=== PATIENT | female | born 1980 | race Hispanic/Latino ===

== ENCOUNTER 2019-04-23 14:15 | Emergency (ER) | payer MEDICARE ==
[2019-04-23 16:00] LABS: Basophils # (Auto) 0.1 K/mm3 (0.0-0.1); Basophils % (Auto) 1.1 % (0.0-1.8); Eosinophils # (Auto) 0.4 K/mm3 (0.0-0.4); Eosinophils % (Auto) 4.8 % (0.0-4.3); Hematocrit 36.2 % (30.3-42.9); Hemoglobin 12.5 gm/dl (10.1-14.3); Lymphocytes # (Auto) 2.4 K/mm3 (1.2-5.4); Lymphocytes % (Auto) 31.9 % (13.4-35.0); Mean Corpuscular HGB Conc 35 % (30-34); Mean Corpuscular Volume 85 fl (79-97); Monocytes # (Auto) 0.5 K/mm3 (0.0-0.8); Monocytes % (Auto) 6.2 % (0.0-7.3); Platelet Count 269 K/mm3 (140-440); Red Blood Count 4.27 M/mm3 (3.65-5.03); Red Cell Distribution Width 13.3 % (13.2-15.2)
[2019-04-23 16:10] LABS: Bilirubin,Urine NEG (Negative); Blood,Urine SM (Negative); Color,Urine Straw (Yellow); Protein,Urine <15 mg/dL mg/dL (Negative); Urobilinogen,Urine < 2.0 mg/dL (<2.0); WBC,Urine < 1.0 /HPF (0.0-6.0)
[2019-04-23 16:25] LABS: Alanine Aminotransferase 15 units/L (7-56); Albumin 4.3 g/dL (3.9-5); BUN/Creatinine Ratio 8; Blood Urea Nitrogen 7 mg/dL (7-17); Calcium 9.2 mg/dL (8.4-10.2); Hemolysis Index 5
[2019-04-23] MEDS ORDERED: TYLENOL PO ONE (16:42)
--- NOTE | 2019-04-23 17:23 | Emergency Department Report ---
HPI - General Chief Complaint: Abdominal Pain Time Seen by Provider: 04/23/19 15:15 - HPI HPI: 38-year-old female presents to the emergency department from [facility] with the complaint of urinary retention. The patient has a history of this over the past year, intermittently. She says that this is been going on since she had sided nephrectomy secondary to cancer in August 2017. She is currently at [facility] for both psychiatric and substance abuse but is currently a voluntary admission there. The patient was having difficulty urinating today so they did a straight cath at about 12:15 and got out about 500 mL of urine. She complains of some lower abdominal pain due to the "pressure" but that has improved upon a Granados catheter being placed here. Just complains of some pain to the right upper quadrant where she has a "knot" that pops out when she stands up. She has a primary care physician and urologist in [facility]. ED Past Medical Hx - Past Medical History Previous Medical History?: Yes - Social History Smoking Status: Current Every Day Smoker Substance Use Type: None - Medications Home Medications: Home Medications Medication Instructions Recorded Confirmed Last Taken Type cephALEXin [Keflex] 1,000 mg PO BID #28 capsule 04/23/19 Unknown Rx ED Review of Systems ROS: Stated complaint: URINARY BLOCKAGE Other details as noted in HPI Comment: All other systems reviewed and negative Constitutional: denies: chills, fever Eyes: denies: eye pain, vision change ENT: denies: ear pain, throat pain Respiratory: denies: cough, shortness of breath Cardiovascular: denies: chest pain, palpitations Gastrointestinal: abdominal pain. denies: vomiting Genitourinary: other (urinary retention). denies: discharge Musculoskeletal: denies: back pain, arthralgia Skin: denies: rash, lesions Neurological: denies: headache, weakness Physical Exam - Physical Exam Vital Signs: Vital Signs 04/23/19 04/23/19 14:48 14:54 Temperature 99 F Pulse Rate 80 Respiratory 12 12 Rate Blood Pressure 124/45 O2 Sat by Pulse 100 Oximetry Physical Exam: GENERAL: The patient is well-developed well-nourished. HENT: Normocephalic. Atraumatic. Patient has moist mucous membranes. EYES: Extraocular motions are intact. NECK: Supple. Trachea is midline. CHEST/LUNGS: Clear to auscultation. There is no respiratory distress noted. HEART/CARDIOVASCULAR: Regular. There is no tachycardia. There is no murmur. ABDOMEN: Abdomen is soft. Mild right upper quadrant abdominal tenderness to palpation. No guarding. Patient has normal bowel sounds. There is no abdominal distention. SKIN: Skin is warm and dry. NEURO: The patient is awake, alert, and oriented. The patient is cooperative. The patient has no focal neurologic deficits. Normal speech. MUSCULOSKELETAL: There is no tenderness or deformity. There is no evidence of acute injury. ED Course Vital Signs 04/23/19 04/23/19 14:48 14:54 Temperature 99 F Pulse Rate 80 Respiratory 12 12 Rate Blood Pressure 124/45 O2 Sat by Pulse 100 Oximetry ED Medical Decision Making - Lab Data Result diagrams: 04/23/19 15:50 04/23/19 15:50 - Radiology Data Radiology results: report reviewed Abdominal ultrasound does not show any acute process - Medical Decision Making This patient presents with some urinary retention. She got out about 500 mL of urine at the psychiatric facility by straight cath. We got out another 700 here doing the same. At this point a Granados catheter was placed. When the patient was decompressed she began having less pain to the suprapubic abdomen but has some mild right upper quadrant tenderness/pain. Abdominal ultrasound does not show any acute process. Labs are unremarkable including urinalysis. Normal k idney function. The patient does have some history of urinary retention since having renal cancer and a nephrectomy and has a urologist back home in [facility]. Vital signs stable throughout her ED course. The patient appears safe for discharge back to the facility at this time. The Granados catheter remains in place and has been put on to a leg bag. She was given a 1 week course of antibiotics for the Granados placement. She will return to the ER with any worsening of her symptoms or any acute distress. - Differential Diagnosis bladder obstruction, UTI, malignancy Critical Care Time: No Critical care attestation.: If time is entered above; I have spent that time in minutes in the direct care of this critically ill patient, excluding procedure time. ED Disposition Clinical Impression: Urinary retention Abdominal pain Qualifiers: Abdominal location: unspecified location Qualified Code(s): R10.9 - Unspecified abdominal pain Disposition: DC/TX-65 PSY HOSP/PSY UNIT Is pt being admited?: No Condition: Stable Instructions: Granados Catheter Placement and Care (ED), Acute Urinary Retention i n Women (ED), Abdominal Pain (ED), Urinary Leg Bag (GEN) Additional Instructions: Please follow-up with your primary care physician and urologist as soon as you're able to do so. Return to the emergency Department with any worsening of your symptoms or any acute distress. Prescriptions: cephALEXin [Keflex] 1,000 mg PO BID #28 capsule Referrals: SHAKIR JESUS [Other] - JAMES Urologist, Your [Other] - JAMES Time of Disposition: 18:58
--- NOTE | 2019-04-23 18:44 | Ultrasound Report ---
ULTRASOUND ABDOMEN, COMPLETE INDICATION: RUQ abd pain, urinary retention, Lower abd pain. COMPARISON: None available. FINDINGS: Pancreas: Normal. Abdominal Aorta: Normal. IVC: Normal. Liver: Normal. Gallbladder: Previous cholecystectomy Bile ducts: Normal. Common Bile Duct measures 3.7 mm. Right Kidney: Normal. Left Kidney: Previous left nephrectomy Spleen: Normal. Free fluid: None. Additional Findings: None. IMPRESSION: 1. No sonographic abnormality of the abdomen. Signer Name: Dontrell Barnett MD Signed: 04/23/2019 6:40 PM Workstation Name: [id number]
[2019-04-23] MEDS ORDERED: ULTRAM PO ONE (18:54)
[2019-04-23] MEDS ORDERED: KEFLEX PO ONE (18:56)
[2019-04-23 23:15] VITALS: BP 121/61
== END 2019-04-24 00:45 ==
LOC: ED 14:15
DX: R33.9 Retention of urine, unspecified (principal); R10.30 Lower abdominal pain, unspecified; F17.200 Nicotine dependence, unspecified, uncomplicated
CPT/HCPCS: 36415; 51702; 76700; 80053; 81001; 84703; 85025

== ENCOUNTER 2019-04-25 14:00 | Emergency (ER) | payer MEDICARE ==
[2019-04-25 14:48] VITALS: BP 120/79
--- NOTE | 2019-04-25 15:04 | Emergency Department Report ---
ED General Adult HPI - General Chief complaint: Urogenital-Female Stated complaint: LOWER ABD PAIN/BLOCKED CATHETER Time Seen by Provider: 04/25/19 14:52 Source: patient, EMS Mode of arrival: Ambulatory Limitations: No Limitations - History of Present Illness Initial comments: This is a 38-year-old inpatient psychiatric patient who states that her Granados catheter drains off and on. She was sent here for evaluation on that basis. She states that she was here a few days ago and a catheter was placed. According to the previous record: 38-year-old female presents to the emergency department from [facility] with the complaint of urinary retention. The patient has a history of this over the past year, intermittently. She says that this is been going on since she had sided nephrectomy secondary to cancer in August 2017. She is currently at [facility] for both psychiatric and substance abuse but is currently a voluntary admission there. The patient was having difficulty urinating today so they did a straight cath at about 12:15 and got out about 500 mL of urine. She complains of some lower abdominal pain due to the "pressure" but that has improved upon a Granados catheter being placed here. Just complains of some pain to the right upper quadrant where she has a "knot" that pops out when she stands up. She has a primary care physician and urologist in [facility]. On my encounter the catheter appears to be draining a clear yellow urine. Patient states that it was not draining earlier and then it started draining again. It appears she is stating that it intermittently stops draining. 2 days ago the patient had an unremarkable abdominal sonogram. -: Sudden Quality: other (states he has some discomfort when her catheter doesn't drain. No current pain complaint.) - Related Data Previous Rx's Medication Instructions Recorded Last Taken Type cephALEXin [Keflex] 1,000 mg PO BID #28 capsule 04/23/19 Unknown Rx Nitrofurantoin Macrocrysta(Nf) 100 mg PO BID #14 capsule 04/25/19 Unknown Rx [Macrodantin CAP] Allergies Allergy/AdvReac Type Severity Reaction Status Date / Time aspirin Allergy Unknown Verified 04/23/19 14:58 divalproex sodium Allergy Unknown Verified 04/23/19 14:58 [From Depakote] hydromorphone [From Dilaudid] Allergy Unknown Verified 04/23/19 14:58 lithium Allergy Unknown Verified 04/23/19 14:58 Sulfa (Sulfonamide Allergy Unknown Verified 04/23/19 14:58 Antibiotics) ED Review of Systems ROS: Stated complaint: LOWER ABD PAIN/BLOCKED CATHETER Other details as noted in HPI Constitutional: denies: chills, fever Eyes: denies: eye pain, eye discharge, vision change ENT: denies: ear pain, throat pain Respiratory: denies: cough, shortness of breath, wheezing Cardiovascular: denies: chest pain, palpitations Endocrine: no symptoms reported Gastrointestinal: denies: abdominal pain, nausea, diarrhea Genitourinary: as per HPI Musculoskeletal: denies: back pain, joint swelling, arthralgia Skin: denies: rash, lesions Neurological: denies: headache, weakness, paresthesias Psychiatric: denies: anxiety, depression Hematological/Lymphatic: denies: easy bleeding, easy bruising ED Past Medical Hx - Past Medical History Previous Medical History?: Yes Hx Diabetes: Yes Hx Psychiatric Treatment: Yes (bipolar) Additional medical history: kidney cancer - Social History Smoking Status: Current Every Day Smoker Substance Use Type: None - Medications Home Medications: Home Medications Medication Instructions Recorded Confirmed Last Taken Type cephALEXin [Keflex] 1,000 mg PO BID #28 capsule 04/23/19 Unknown Rx Nitrofurantoin Macrocrysta(Nf) 100 mg PO BID #14 capsule 04/25/19 Unknown Rx [Macrodantin CAP] ED Physical Exam - General Limitations: No Limitations General appearance: alert, in no apparent distress - Head Head exam: Present: atraumatic, normocephalic - Eye Eye exam: Present: normal appearance. Absent: scleral icterus - ENT ENT exam: Present: mucous membranes moist - Neck Neck exam: Present: normal inspection. Absent: tenderness, meningismus - Respiratory Respiratory exam: Present: normal lung sounds bilaterally. Absent: respiratory distress - Cardiovascular Cardiovascular Exam: Present: regular rate, normal rhythm. Absent: systolic murmur, diastolic murmur, rubs, gallop - GI/Abdominal GI/Abdominal exam: Present: soft, normal bowel sounds. Absent: distended, tenderness, guarding, rebound, rigid - Extremities Exam Extremities exam: Present: normal inspection - Back Exam Back exam: Present: normal inspection - Neurological Exam Neurological exam: Present: alert, oriented X3, CN II-XII intact. Absent: motor sensory deficit - Psychiatric Psychiatric exam: Present: normal mood, flat affect - Skin Skin exam: Present: warm, dry, intact, normal color. Absent: rash ED Course Vital Signs 04/25/19 14:42 Temperature 98 F Pulse Rate 80 Respiratory 16 Rate Blood Pressure 120/79 O2 Sat by Pulse 98 Oximetry - Reevaluation(s) Reevaluation #1: She was questionable UTI. We'll culture her urine. We'll put her on Macrodantin. Refer to [facility]. 04/25/19 17:01 ED Medical Decision Making - Lab Data Result diagrams: 04/25/19 14:58 04/25/19 14:58 Laboratory Results - last 24 hr 04/25/19 04/25/19 04/25/19 14:58 14:58 Unknown WBC 8.1 RBC 4.44 Hgb 12.7 Hct 37.9 MCV 86 MCH 29 MCHC 33 RDW 13.9 Plt Count 280 Lymph % (Auto) 29.9 [place] % (Auto) 6.6 Eos % (Auto) 3.8 Baso % (Auto) 1.2 Lymph # 2.4 [place]ven # 0.5 Eos # 0.3 Baso # 0.1 Seg Neutrophils % 58.5 Seg Neutrophils # 4.7 Sodium 139 Potassium 3.7 Chloride 105.0 Carbon Dioxide 21 L Anion Gap 17 BUN 7 Creatinine 0.8 Estimated GFR > 60 BUN/Creatinine Ratio 9 Glucose 96 Calcium 8.8 Urine Color Karen Urine Turbidity Clear Urine pH 6.0 Ur Specific [place] 1.008 Urine Protein <15 mg/dl Urine Glucose (UA) Neg Urine Ketones Neg Urine Blood Sm Urine Nitrite Pos Urine Bilirubin Neg Urine Urobilinogen 2.0 Ur Leukocyte Esterase Sm Urine WBC (Auto) 4.0 Urine RBC (Auto) 4.0 Urine Bacteria (Auto) 1+ Urine Mucus Few Critical care attestation.: If time is entered above; I have spent that time in minutes in the direct care of this critically ill patient, excluding procedure time. ED Disposition Clinical Impression: Urinary retention UTI (urinary tract infection) Qualifiers: Urinary tract infection type: site unspecified Hematuria presence: without h ematuria Qualified Code(s): N39.0 - Urinary tract infection, site not specified Disposition: - TO HOME OR SELFCARE Is pt being admited?: No Does the pt Need Aspirin: No Condition: Stable Instructions: Urinary Tract Infection in Women (ED), Granados Catheter Placement and Care (ED) Additional Instructions: Rx as directed. Follow-up with urologist. Empty bag adequately frequently. Follow-up on urine culture in 3 days. Prescriptions: Nitrofurantoin Macrocrysta(Nf) [Macrodantin CAP] 100 mg PO BID #14 capsule Referrals: PRIMARY CAREMD [Primary Care Provider] - 3-5 Days [facility] [Provider Group] - 3-5 Days Time of Disposition: 17:02
[2019-04-25 15:24] LABS: Basophils # (Auto) 0.1 K/mm3 (0.0-0.1); Basophils % (Auto) 1.2 % (0.0-1.8); Eosinophils # (Auto) 0.3 K/mm3 (0.0-0.4); Eosinophils % (Auto) 3.8 % (0.0-4.3); Hematocrit 37.9 % (30.3-42.9); Hemoglobin 12.7 gm/dl (10.1-14.3); Lymphocytes # (Auto) 2.4 K/mm3 (1.2-5.4); Lymphocytes % (Auto) 29.9 % (13.4-35.0); Mean Corpuscular HGB Conc 33 % (30-34); Mean Corpuscular Volume 86 fl (79-97); Monocytes # (Auto) 0.5 K/mm3 (0.0-0.8); Monocytes % (Auto) 6.6 % (0.0-7.3); Platelet Count 280 K/mm3 (140-440); Red Blood Count 4.44 M/mm3 (3.65-5.03); Red Cell Distribution Width 13.9 % (13.2-15.2)
[2019-04-25 15:28] LABS: BUN/Creatinine Ratio 9; Blood Urea Nitrogen 7 mg/dL (7-17); Calcium 8.8 mg/dL (8.4-10.2); Hemolysis Index 11
[2019-04-25] MEDS ORDERED: TYLENOL PO ONE (15:38)
[2019-04-25 15:45] LABS: Bacteria,Urine 1+ /HPF (Negative); Bilirubin,Urine NEG (Negative); Blood,Urine SM (Negative); Color,Urine Amber (Yellow); Mucus,Urine FEW /HPF; Protein,Urine <15 mg/dL mg/dL (Negative)
== END 2019-04-25 18:04 | disposition home or self-care (01) ==
LOC: ED 14:00
DX: N39.0 Urinary tract infection, site not specified (principal); R33.9 Retention of urine, unspecified; E11.9 Type 2 diabetes mellitus without complications; F20.9 Schizophrenia, unspecified; Z85.528 Personal history of other malignant neoplasm of kidney; Z88.2 Allergy status to sulfonamides; Z88.8 Allergy status to other drugs, medicaments and biological substances; Z79.899 Other long term (current) drug therapy
CPT/HCPCS: 36415; 80048; 81001; 85025; 87076; 87086; 87186

== ENCOUNTER 2019-07-12 22:42 | Emergency (ER) | payer OTHER, MEDICARE ==
[2019-07-12 23:01] VITALS: BP 121/74
--- NOTE | 2019-07-12 23:11 | XRay Report ---
Right hand 3 views INDICATION: Right hand pain following injury IMPRESSION: Impacted fracture through the distal metaphysis of the fifth metacarpal. Signer Name: Darren Barber MD Signed: 07/12/2019 11:07 PM Workstation Name: [id number]
--- NOTE | 2019-07-12 23:38 | Emergency Department Report ---
Upper Extremity - [facility] Chief Complaint: Extremity Injury, Upper Stated Complaint: FRACTURED RIGHT HAND Time Seen by Provider: 07/12/19 22:47 Upper Extremity: Right Hand Occurred When: 4 Days Mechanism: Other (punched a metal door on July 08) Symptoms: Yes Pain with Movement, Yes Swelling Other History: 38-year-old female patient of words grew frustrated and punched a door on July 08 associated swelling to the lateral aspect of the right hand. She reports having had some x-rays taken on yesterday which revealed a fracture and was told to emergency department today for further evaluation and treatment options ED Review of Systems ROS: Stated complaint: FRACTURED RIGHT HAND Other details as noted in HPI Comment: All other systems reviewed and negative ED Past Medical Hx - Past Medical History Hx Diabetes: Yes Hx Psychiatric Treatment: Yes (bipolar) Additional medical history: kidney cancer - Social History Smoking Status: Current Every Day Smoker Substance Use Type: None - Medications Home Medications: Home Medications Medication Instructions Recorded Confirmed Last Taken Type cephALEXin [Keflex] 1,000 mg PO BID #28 capsule 04/23/19 Unknown Rx Nitrofurantoin Macrocrysta(Nf) 100 mg PO BID #14 capsule 04/25/19 Unknown Rx [Macrodantin CAP] Upper Extremity Exam - Exam General: Vital signs noted. No distress. Alert and acting appropriately. Head and Torso: No HEENT Abnormality, No Neck Tenderness, No Chest/Lungs Abnorma lity, No Abdominal Tenderness, No Back Tenderness Shoulder Exam: Yes Normal Range of Motion in Shoulder, No Shoulder Tenderness, No Clavicle Tenderness, No Shoulder Deformity, No AC Joint Tenderness Arm Exam: No Arm/Humerus Tenderness, No Arm Deformity Elbow: No Elbow Tenderness, No Normal Range of Motion in Elbow, No Elbow Deformity Forearm: No Forearm Tenderness, No Forearm Deformity, No Pain with Pronation, No Pain with Supination Wrist: Yes Normal ROM in Wrist, No Wrist Tenderness, No Wrist Deformity, No Snuffbox Tenderness, No Pain with Axial Thumb Compression Hand: Yes Hand Tenderness, Yes Normal ROM in Digit(s), No Hand Deformity, No D igit Tenderness, No Digit(s) Deformity, No Tendon Dysfunction CMS Exam: No Broken Skin, No Normal Distal Pulses, No Normal Capillary Refill, No Normal Distal Sensation Hand L/R Back: 1 - Pain and tenderness to this region with some mild swelling. Pulses 2+ ca pillary refills are brisk. No snuffbox tenderness ED Course Vital Signs 07/12/19 22:50 Temperature 97.8 F Pulse Rate 60 Respiratory 18 Rate Blood Pressure 121/74 O2 Sat by Pulse 99 Oximetry - Orthopedic Splinting/Casting Injury #1 Side: right Upper Extremity Injury Location: hand Upper Extremity Immobilizer: [facility] gutter Critical care attestation.: If time is entered above; I have spent that time in minutes in the direct care of this critically ill patient, excluding procedure time. ED Disposition Clinical Impression: Metacarpal bone fracture Disposition: - TO HOME OR SELFCARE Is pt being admited?: No Does the pt Need Aspirin: No Condition: Stable Instructions: Hand Fracture (ED), Boxer Fracture (ED) Referrals: MINGO AGUIRRE MD [Staff Physician] - 3-5 Days
== END 2019-07-13 01:55 | disposition home or self-care (01) ==
LOC: ED 22:42
DX: S62.316A Displaced fracture of base of fifth metacarpal bone, right hand, initial encounter for closed fracture (principal); E11.9 Type 2 diabetes mellitus without complications; F31.9 Bipolar disorder, unspecified; F17.200 Nicotine dependence, unspecified, uncomplicated; Z79.899 Other long term (current) drug therapy; Z88.6 Allergy status to analgesic agent; Z88.8 Allergy status to other drugs, medicaments and biological substances; W22.8XXA Striking against or struck by other objects, initial encounter; Y93.89 Activity, other specified; Y92.89 Other specified places as the place of occurrence of the external cause; Y99.8 Other external cause status

== ENCOUNTER 2019-09-18 20:01 | Emergency (ER) | payer MEDICARE ==
[2019-09-19 00:59] LABS: Basophils # (Auto) 0.1 K/mm3 (0.0-0.1); Basophils % (Auto) 0.9 % (0.0-1.8); Eosinophils # (Auto) 0.5 K/mm3 (0.0-0.4); Eosinophils % (Auto) 4.8 % (0.0-4.3); Hematocrit 41.2 % (30.3-42.9); Hemoglobin 13.8 gm/dl (10.1-14.3); Lymphocytes # (Auto) 3.3 K/mm3 (1.2-5.4); Lymphocytes % (Auto) 30.8 % (13.4-35.0); Mean Corpuscular HGB Conc 34 % (30-34); Mean Corpuscular Volume 84 fl (79-97); Monocytes # (Auto) 0.8 K/mm3 (0.0-0.8); Monocytes % (Auto) 7.2 % (0.0-7.3); Platelet Count 339 K/mm3 (140-440); Red Blood Count 4.93 M/mm3 (3.65-5.03)
[2019-09-19 01:12] LABS: BUN/Creatinine Ratio 10; Blood Urea Nitrogen 10 mg/dL (7-17); Calcium 9.5 mg/dL (8.4-10.2); Hemolysis Index 6
[2019-09-19] MEDS ORDERED: ACETAMINOPHEN 500 MG TAB PO ONE (01:59)
--- NOTE | 2019-09-19 03:06 | Emergency Department Report ---
<ESMERLAURAKellLOUIE - Last Filed: 09/19/19 03:01> ED Psych HPI - General Chief Complaint: Medical Clearance Stated Complaint: DRUG ABUSE/HEADACHE Source: patient, EMS Mode of arrival: Ambulatory Limitations: No Limitations - History of Present Illness Initial Comments: Patient is a 38-year-old white female with a history of chronic anxiety and depression, bipolar disorder, and chronic drug abuse who presents to the ED with complains of diffuse body aches after heavy cocaine abuse in the last 7 days. Patient states that she is in the ED for medical clearance so she could go follow detox of cocaine. Patient also states that she has not taken her mental health medications in over 1 month after she stopped taking them on her own. Patient denies suicidal or homicidal ideation, chest pain, shortness of breath, headache, nausea, vomiting, abdominal pain, change in vision, syncope, palpitations, diarrhea, fever and chills or cough and hallucinations. MD Complaint: feels depressed, other (cocaine abuse, wants detox) -: Sudden, week(s) (1) Associated Psychiatric Symptoms: depression History of same: Yes Quality: constant Improves With: none Worsens With: none Context: recent drug abuse, not taking psychiatric Associated Symptoms: headache. denies: denies other symptoms, confusion, shortness of breath, nausea, vomiting, syncope, insomnia Treatments Prior to Arrival: none - Related Data Previous Rx's Medication Instructions Recorded Last Taken Type cephALEXin [Keflex] 1,000 mg PO BID #28 capsule 04/23/19 Unknown Rx Nitrofurantoin Macrocrysta(Nf) 100 mg PO BID #14 capsule 04/25/19 Unknown Rx [Macrodantin CAP] Allergies Allergy/AdvReac Type Severity Reaction Status Date / Time aspirin Allergy Unknown Verified 04/23/19 14:58 divalproex sodium Allergy Unknown Verified 04/23/19 14:58 [From Depakote] hydromorphone [From Dilaudid] Allergy Unknown Verified 04/23/19 14:58 lithium Allergy Unknown Verified 04/23/19 14:58 Sulfa (Sulfonamide Allergy Unknown Verified 04/23/19 14:58 Antibiotics) ED Review of Systems Constitutional: denies: chills, fever Eyes: denies: eye pain, eye discharge, vision change ENT: denies: ear pain, throat pain Respiratory: denies: cough, shortness of breath, wheezing Cardiovascular: denies: chest pain, palpitations Endocrine: no symptoms reported Gastrointestinal: denies: abdominal pain, nausea, diarrhea Genitourinary: denies: urgency, dysuria, discharge Musculoskeletal: arthralgia, myalgia. denies: back pain, joint swelling Skin: denies: rash, lesions Neurological: headache. denies: weakness, paresthesias Psychiatric: anxiety, depression. denies: auditory hallucinations, visual hallucinations, homicidal thoughts, suicidal thoughts Hematological/Lymphatic: denies: easy bleeding, easy bruising ED Past Medical Hx - Past Medical History Previous Medical History?: Yes Hx Diabetes: Yes Hx Psychiatric Treatment: Yes (bipolar, schizoaffective disorder) Hx COPD: Yes Additional medical history: kidney cancer - Surgical History Past Surgical History?: Yes Additional Surgical History: kidney surgery - Social History Smoking Status: Current Every Day Smoker Substance Use Type: Cocaine - Medications Home Medications: Home Medications Medication Instructions Recorded Confirmed Last Taken Type cephALEXin [Keflex] 1,000 mg PO BID #28 capsule 04/23/19 Unknown Rx Nitrofurantoin Macrocrysta(Nf) 100 mg PO BID #14 capsule 04/25/19 Unknown Rx [Macrodantin CAP] ED Physical Exam - General Limitations: No Limitations General appearance: alert, in no apparent distress - Head Head exam: Present: atraumatic, normocephalic, normal inspection - Eye Eye exam: Present: normal appearance, PERRL, EOMI Pupils: Present: normal accommodation - ENT ENT exam: Present: normal exam, normal orophraynx, mucous membranes moist, TM's normal bilaterally, normal external ear exam - Neck Neck exam: Present: normal inspection, full ROM - Respiratory Respiratory exam: Present: normal lung sounds bilaterally. Absent: respiratory distress, wheezes, rales, rhonchi, stridor, chest wall tenderness, accessory muscle use, prolonged expiratory - Cardiovascular Cardiovascular Exam: Present: regular rate, normal rhythm, normal heart sounds. Absent: systolic murmur, diastolic murmur, rubs, gallop - GI/Abdominal GI/Abdominal exam: Present: soft, normal bowel sounds. Absent: tenderness, guarding, rebound, hyperactive bowel sounds, hypoactive bowel sounds, organomegaly - Extremities Exam Extremities exam: Present: normal inspection, full ROM, normal capillary refill - Back Exam Back exam: Present: normal inspection, full ROM. Absent: tenderness, CVA tenderness (R), CVA tenderness (L), muscle spasm, paraspinal tenderness - Neurological Exam Neurological exam: Present: alert, oriented X3, CN II-XII intact, normal gait, reflexes normal - Psychiatric Psychiatric exam: Present: normal affect, normal mood - Skin Skin exam: Present: warm, dry, intact, normal color. Absent: rash ED Medical Decision Making - Lab Data Result diagrams: 09/19/19 00:38 09/19/19 00:38 - Medical Decision Making This is a 38-year-old white female with a history of chronic drug abuse, bipolar disorder, anxiety and depression, schizophrenia and [id number] diabetes who presents to the ED via EMS requesting for medical clearance in order to go for detox and drug rehabilitation especially cocaine program. Patient has stated that she had been on a cocaine binge for the last 7 days and also failed to take her mental health medications for over one month. In the ED, patient is alert and oriented 3 and recent distress, cutting and normal conversation and is hemodynamically stable. Lab test results were reviewed and are all nonactionable except for acute hyperglycemia of 229mg/dL. Patient was treated for tension headache and body aches with Tylenol, and also given a meal tray. Patient is medically cleared, and currently awaiting mental health evaluation and subsequent disposition. - Differential Diagnosis Cocaine abuse; Bipolar d/o Schizophrenia, depression ED Disposition Clinical Impression: Polysubstance abuse Disposition: DC-01 TO HOME OR SELFCARE Is pt being admited?: No Does the pt Need Aspirin: No Condition: Stable Instructions: Polysubstance Abuse (ED) Additional Instructions: please follow up with outpatient services provided to you Referrals: PRIMARY CARE, [Primary Care Provider] - 3-5 Days [facility] [Outside] - 3-5 Days Time of Disposition: 03:13 Print Language: AMHARIC <AMANDA MCKEON - Last Filed: 09/20/19 12:16> ED Review of Systems ROS: Stated complaint: DRUG ABUSE/HEADACHE Other details as noted in HPI ED Course Vital Signs 09/18/19 09/19/19 09/19/19 20:06 03:11 05:00 Temperature 98.7 F 97.9 F Pulse Rate 76 82 Respiratory 16 18 18 Rate Blood Pressure 141/87 Blood Pressure 126/69 [Right] O2 Sat by Pulse 97 100 98 Oximetry 02/08/20 02/08/20 02/09/20 07:44 20:22 01:47 Temperature 98.1 F 98.1 F 98.0 F Pulse Rate 96 H 69 62 Respiratory 18 16 14 Rate Blood Pressure Blood Pressure 134/78 117/68 135/78 [Right] O2 Sat by Pulse 98 96 93 Oximetry 09/20/19 08:08 Temperature 98.2 F Pulse Rate 62 Respiratory 16 Rate Blood Pressure Blood Pressure 121/72 [Right] O2 Sat by Pulse 97 Oximetry ED Medical Decision Making - Lab Data Result diagrams: 09/19/19 00:38 09/19/19 00:38 - Medical Decision Making Patient evaluated by mental health and given outpatient resources follow-up Critical care attestation.: If time is entered above; I have spent that time in minutes in the direct care of this critically ill patient, excluding procedure time. ED Disposition Is pt being admited?: No Does the pt Need Aspirin: No
[2019-09-19 03:21] LABS: Bacteria,Urine 1+ /HPF (Negative); Bilirubin,Urine NEG (Negative); Blood,Urine SM (Negative); Color,Urine Amber (Yellow); Mucus,Urine FEW /HPF
[2019-09-19 03:22] LABS: WBC,Urine > 182.0 /HPF (0.0-6.0)
[2019-09-19 03:27] LABS: Amphetamine Screen,Urine PRESUMPTIVE NEGATIVE; Benzodiazepines Screen,Urine PRESUMPTIVE NEGATIVE; Cannabinoid Screen,Urine PRESUMPTIVE NEGATIVE; Methadone Screen,Urine PRESUMPTIVE NEGATIVE; Opiate Screen,Urine PRESUMPTIVE NEGATIVE
[2019-09-19 04:04] LABS: Cocaine Screen,Urine PRESUMPTIVE POSITIVE
[2019-09-19] MEDS: NITROFURANTOIN MONOHYD/M-CRYST 100 MG CAP PO SCH (09:45)
[2019-09-20] MEDS: NITROFURANTOIN MONOHYD/M-CRYST 100 MG CAP PO SCH ×2 (00:47→11:04)
[2019-09-20 12:49] VITALS: BP 126/94
== END 2019-09-20 12:57 | disposition home or self-care (01) ==
LOC: ED 20:01
DX: F19.10 Other psychoactive substance abuse, uncomplicated (principal); E11.9 Type 2 diabetes mellitus without complications; F31.9 Bipolar disorder, unspecified; J44.9 Chronic obstructive pulmonary disease, unspecified; F17.200 Nicotine dependence, unspecified, uncomplicated; F14.10 Cocaine abuse, uncomplicated; Z98.890 Other specified postprocedural states; Z79.899 Other long term (current) drug therapy; Z88.0 Allergy status to penicillin; Z88.4 Allergy status to anesthetic agent; Z88.8 Allergy status to other drugs, medicaments and biological substances; Z88.2 Allergy status to sulfonamides
CPT/HCPCS: 36415; 80048; 80307; 80320; 81001; 85025; G0480

== ENCOUNTER 2019-10-09 16:10 | Emergency (ER) | payer MEDICARE ==
--- NOTE | 2019-10-09 16:17 | Event Note ---
ED Screening Note ED Screening Note: hematuria hx of recurrent UTI This initial assessment/diagnostic orders/clinical plan/treatment(s) is/are rodríguez bject to change based on patients health status, clinical progression and re- assessment by fellow clinical providers in the ED. Further treatment and workup at subsequent clinical providers discretion. Patient/guardian urged not to elope from the ED as their condition may be serious if not clinically assessed and managed. Initial orders include: ua
[2019-10-09 16:18] VITALS: BP 114/63
[2019-10-09 16:54] LABS: Bilirubin,Urine NEG (Negative); Blood,Urine NEG (Negative); Color,Urine Yellow (Yellow); Mucus,Urine FEW /HPF; Protein,Urine <15 mg/dL mg/dL (Negative); Urobilinogen,Urine < 2.0 mg/dL (<2.0)
--- NOTE | 2019-10-09 19:09 | Emergency Department Report ---
ED General Adult HPI - General Chief complaint: Urogenital-Female Stated complaint: BLOOD IN URINE/PAIN Time Seen by Provider: 10/09/19 18:18 Source: patient Mode of arrival: Ambulatory Limitations: No Limitations - History of Present Illness Initial comments: 38-year-old -[place] female states emerge department complaining of a 1 year history of dysuria and hematuria off and on from unknown etiology reports being seen multiple times by her primary care provider in ED with no resolution. She since then obtain a new primary care provider for which she has an appointment tomorrow at 1PM but wanted to come today to receive something for pain as she complains of having some burning sensation when she urinates. She reports no increased urgency or decreased production no fever, chills, sweats no chest pain or palpitations. No nausea or vomiting. - Related Data Previous Rx's Medication Instructions Recorded Last Taken Type cephALEXin [Keflex] 1,000 mg PO BID #28 capsule 04/23/19 Unknown Rx Nitrofurantoin Macrocrysta(Nf) 100 mg PO BID #14 capsule 04/25/19 Unknown Rx [Macrodantin CAP] Allergies Allergy/AdvReac Type Severity Reaction Status Date / Time aspirin Allergy Unknown Verified 10/09/19 16:11 divalproex sodium Allergy Unknown Verified 10/09/19 16:11 [From Depakote] hydromorphone [From Dilaudid] Allergy Unknown Verified 10/09/19 16:11 lithium Allergy Unknown Verified 10/09/19 16:11 Sulfa (Sulfonamide Allergy Unknown Verified 10/09/19 16:11 Antibiotics) ED Review of Systems ROS: Stated complaint: BLOOD IN URINE/PAIN Other details as noted in HPI Comment: All other systems reviewed and negative ED Past Medical Hx - Past Medical History Hx Diabetes: Yes Hx Psychiatric Treatment: Yes (bipolar, schizoaffective disorder) Hx COPD: Yes Additional medical history: kidney cancer - Surgical History Additional Surgical History: kidney surgery - Social History Smoking Status: Current Every Day Smoker Substance Use Type: None - Medications Home Medications: Home Medications Medication Instructions Recorded Confirmed Last Taken Type cephALEXin [Keflex] 1,000 mg PO BID #28 capsule 04/23/19 Unknown Rx Nitrofurantoin Macrocrysta(Nf) 100 mg PO BID #14 capsule 04/25/19 Unknown Rx [Macrodantin CAP] ED Physical Exam - General Limitations: No Limitations General appearance: alert, in no apparent distress - Head Head exam: Present: atraumatic, normocephalic - Eye Eye exam: Present: normal appearance, PERRL, EOMI - ENT ENT exam: Present: normal exam, mucous membranes moist - Neck Neck exam: Present: normal inspection - Respiratory Respiratory exam: Present: normal lung sounds bilaterally. Absent: respiratory distress - Cardiovascular Cardiovascular Exam: Present: regular rate, normal rhythm. Absent: systolic murmur, diastolic murmur, rubs, gallop - GI/Abdominal GI/Abdominal exam: Present: soft, normal bowel sounds. Absent: tenderness, guarding, rebound, rigid - Extremities Exam Extremities exam: Present: normal inspection - Back Exam Back exam: Present: normal inspection. Absent: CVA tenderness (R), CVA tenderness (L) - Neurological Exam Neurological exam: Present: alert, oriented X3, CN II-XII intact, normal gait - Psychiatric Psychiatric exam: Present: normal affect, normal mood - Skin Skin exam: Present: warm, dry, intact, normal color. Absent: rash ED Course Vital Signs 10/09/19 16:16 Temperature 98.8 F Pulse Rate 81 Respiratory 20 Rate Blood Pressure 114/63 O2 Sat by Pulse 96 Oximetry ED Medical Decision Making - Medical Decision Making 38-year-old female with a long history of reported hematuria currently taking Plavix presents to the ED suggesting the same however her urinalysis shows no no blood or signs of any current infectious process. She reported no sexual activity on her history however she eloped before we were able to to discuss all the findings. Critical care attestation.: If time is entered above; I have spent that time in minutes in the direct care of this critically ill patient, excluding procedure time. ED Disposition Clinical Impression: Dysuria Disposition: Z-07 ELOPED Is pt being admited?: No Does the pt Need Aspirin: No Condition: Undetermined Instructions: Dysuria (ED) Referrals: [facility] [Provider Group] - 3-5 Days PRIMARY CARE, [Primary Care Provider] - 3-5 Days
== END 2019-10-10 | disposition left against medical advice (07) ==
LOC: ED 16:10
DX: R30.0 Dysuria (principal); R31.9 Hematuria, unspecified
CPT/HCPCS: 81001; 99283

== ENCOUNTER 2019-10-24 17:11 | Emergency (ER) | payer MEDICARE ==
[2019-10-24 18:56] LABS: HCG Qualitative,Urine Negative (Negative)
[2019-10-24 18:58] LABS: Bilirubin,Urine NEG (Negative); Blood,Urine NEG (Negative); Color,Urine Yellow (Yellow); Mucus,Urine FEW /HPF; Protein,Urine <15 mg/dL mg/dL (Negative); Urobilinogen,Urine < 2.0 mg/dL (<2.0); WBC,Urine < 1.0 /HPF (0.0-6.0)
--- NOTE | 2019-10-24 20:34 | Cat Scan Report ---
CT abdomen pelvis wo con INDICATION: MAIN: RT flank and right pelvic pain. HISTORY OF KIDNEY REMOVAL DUE TO CANCER AUG 2017.. TECHNIQUE: All CT scans at this location are performed using the following dose modulation technique: Automated exposure control. CONTRAST: None. COMPARISON: 10/05/2019. CT abdomen: Mild peripheral groundglass opacity at the right base. Status post previous left nephrectomy. The remaining parenchymal organs are unremarkable. Negative fo r new mass, adenopathy or inflammation. The bowel is not dilated or thickened. Status post previous cholecystectomy. Negative for biliary dilatation. CT PELVIS: Negative for distal ureteral stone, pelvic fluid collection or inflammation. Colonic stool is moderate. IMPRESSION: 1. Moderate colonic stool. 2. Negative for metastatic disease or active process. 3. Mild peripheral groundglass at the right lung base is nonspecific but can be seen with atypical in fection. Signer Name: Je Vásquez MD Signed: 10/24/2019 8:30 PM Workstation Name: [id number]
[2019-10-24] MEDS ORDERED: ACETAMINOPHEN 500 MG TAB PO ONE (21:06)
[2019-10-24] MEDS ORDERED: CYCLOBENZAPRINE 10 MG TAB PO ONE (21:06)
--- NOTE | 2019-10-24 21:29 | Emergency Department Report ---
ED Back Pain/Injury HPI - General Chief Complaint: Back Pain/Injury Stated Complaint: RIGHT FLANK PAIN, PROTIEN IN URINE Time Seen by Provider: 10/24/19 17:15 Source: patient Limitations: No Limitations - History of Present Illness Initial Comments: Patient is a 38-year-old white female with a history of anxiety and depression, chronic cocaine abuse, bipolar disorder who presents to the ED with complaint of acute onset persistent right flank and lower back pain for the last 2 days worse with any movement. Patient states that she performs heavy lifting all the time. Patient denies fall, dysuria, urinary frequency and urgency, abdominal pain, nausea, vomiting, fever, chills, cough, chest pain or shortness of breath, vaginal bleeding, vaginal discharge or traumatic injury, numbness and tingling or weakness of lower extremities bilaterally. MD Complaint: back pain, other (Right flank and lower back pain) -: Sudden, days(s) (2) Similar Symptoms Previously: Yes Place: home Radiation: none Severity: severe Severity scale (0 -10): 7 Quality: sharp, aching Consistency: constant Improves With: none Worsens With: movement, walking Associated Symptoms: denies other symptoms. denies: confusion, weakness, chest pain, numbness, difficulty walking, cough, difficulty urinating, diaphoresis, incontinence, fever/chills, constipation, headaches, abdominal pain, loss of appetite, malaise, nausea/vomiting, rash, seizure, syncope - Related Data Previous Rx's Medication Instructions Recorded Last Taken Type cephALEXin [Keflex] 1,000 mg PO BID #28 capsule 04/23/19 Unknown Rx Nitrofurantoin Macrocrysta(Nf) 100 mg PO BID #14 capsule 04/25/19 Unknown Rx [Macrodantin CAP] methOCARBAMOL [Robaxin TAB] 750 mg PO Q8H PRN #24 tablet 10/24/19 Unknown Rx predniSONE [Deltasone] 40 mg PO QDAY #12 tab 10/24/19 Unknown Rx traMADoL [Ultram] 50 mg PO Q6HR PRN #12 tablet 10/24/19 Unknown Rx Allergies Allergy/AdvReac Type Severity Reaction Status Date / Time aspirin Allergy Unknown Verified 10/09/19 16:11 divalproex sodium Allergy Unknown Verified 10/09/19 16:11 [From Depakote] hydromorphone [From Dilaudid] Allergy Unknown Verified 10/09/19 16:11 lithium Allergy Unknown Verified 10/09/19 16:11 Sulfa (Sulfonamide Allergy Unknown Verified 10/09/19 16:11 Antibiotics) ED Review of Systems ROS: Stated complaint: RIGHT FLANK PAIN, PROTIEN IN URINE Other details as noted in HPI Constitutional: denies: chills, fever Eyes: denies: eye pain, eye discharge, vision change ENT: denies: ear pain, throat pain Respiratory: denies: cough, shortness of breath, wheezing Cardiovascular: denies: chest pain, palpitations Endocrine: no symptoms reported Gastrointestinal: denies: abdominal pain, nausea, diarrhea Genitourinary: denies: urgency, dysuria, discharge Musculoskeletal: back pain (lower), arthralgia. denies: joint swelling Skin: denies: rash, lesions Neurological: denies: headache, weakness, paresthesias Psychiatric: denies: anxiety, depression Hematological/Lymphatic: denies: easy bleeding, easy bruising ED Past Medical Hx - Past Medical History Hx Diabetes: Yes Hx Psychiatric Treatment: Yes (bipolar, schizoaffective disorder) Hx COPD: Yes Additional medical history: kidney cancer - Surgical History Additional Surgical History: kidney surgery - Social History Smoking Status: Current Every Day Smoker - Medications Home Medications: Home Medications Medication Instructions Recorded Confirmed Last Taken Type cephALEXin [Keflex] 1,000 mg PO BID #28 capsule 04/23/19 Unknown Rx Nitrofurantoin Macrocrysta(Nf) 100 mg PO BID #14 capsule 04/25/19 Unknown Rx [Macrodantin CAP] methOCARBAMOL [Robaxin TAB] 750 mg PO Q8H PRN #24 tablet 10/24/19 Unknown Rx predniSONE [Deltasone] 40 mg PO QDAY #12 tab 10/24/19 Unknown Rx traMADoL [Ultram] 50 mg PO Q6HR PRN #12 tablet 10/24/19 Unknown Rx ED Physical Exam - General Limitations: No Limitations General appearance: alert, in no apparent distress - Head Head exam: Present: atraumatic, normocephalic, normal inspection - Eye Eye exam: Present: normal appearance, PERRL, EOMI Pupils: Present: normal accommodation - ENT ENT exam: Present: normal exam, normal orophraynx, mucous membranes moist, TM's normal bilaterally, normal external ear exam - Neck Neck exam: Present: normal inspection, full ROM - Respiratory Respiratory exam: Present: normal lung sounds bilaterally. Absent: respiratory distress, wheezes, rales, rhonchi, chest wall tenderness, accessory muscle use, decreased breath sounds - Cardiovascular Cardiovascular Exam: Present: regular rate, normal rhythm, normal heart sounds. Absent: systolic murmur, diastolic murmur, rubs, gallop - GI/Abdominal GI/Abdominal exam: Present: soft, normal bowel sounds. Absent: tenderness, guarding, hyperactive bowel sounds, hypoactive bowel sounds - Extremities Exam Extremities exam: Present: normal inspection, full ROM, normal capillary refill - Back Exam Back exam: Present: normal inspection, full ROM, tenderness (Palpable), muscle spasm, paraspinal tenderness - Neurological Exam Neurological exam: Present: alert, oriented X3, CN II-XII intact ( lumbosacral paraspinal musculoskeletal tenderness), normal gait, reflexes normal - Psychiatric Psychiatric exam: Present: normal affect, normal mood - Skin Skin exam: Present: warm, dry, intact, normal color. Absent: rash ED Course Vital Signs 10/24/19 17:18 Temperature 98.1 F Pulse Rate 87 Respiratory 19 Rate Blood Pressure 112/66 O2 Sat by Pulse 95 Oximetry ED Medical Decision Making - Radiology Data Radiology results: report reviewed, [place] [address] Cat Scan Report Signed Patient: FIDENCIO ALEXANDER MR#: [id number] : 1980 Acct:[id number] Age/Sex: 38 / F ADM Date: 10/24/19 Loc: ED Attending Dr: Ordering Physician: YESY BRITT Date of Service: 10/24/19 Procedure(s): CT abdomen pelvis wo con Accession Number(s): [id number] cc: YESY BRITT CT abdomen pelvis wo con INDICATION: MAIN: RT flank and right pelvic pain. HISTORY OF KIDNEY REMOVAL DUE TO CANCER AUG 2017.. TECHNIQUE: All CT scans at this location are performed using the following dose modulation technique: Automated exposure control. CONTRAST: None. COMPARISON: 10/05/2019. CT abdomen: Mild peripheral groundglass opacity at the right base. Status post previous left nephrectomy. The remaining parenchymal organs are unremarkable. Negative for new mass, adenopathy or inflammation. The bowel is not dilated or thickened. Status post previous cholecystectomy. Negative for biliary dilatation. CT PELVIS: Negative for distal ureteral stone, pelvic fluid collection or inflammation. Colonic stool is moderate. IMPRESSION: 1. Moderate colonic stool. 2. Negative for metastatic disease or active process. 3. Mild peripheral groundglass at the right lung base is nonspecific but can be seen with atypical infection. Signer Name: Je Vásquez MD Signed: 10/24/2019 8:30 PM Workstation Name: [id number] Transcribed By: ES Dictated By: Je Vásquez MD Electronically Authenticated By: Je Vásquez MD Signed Date/Time: 10/24/192029 DD/ 19 TD/TT: - Medical Decision Making This is a 38-year-old female with history of bipolar disorder, anxiety and depression who presents to the ED with complaint of acute onset persistent severe nontraumatic right low back pain. In the ED, patient is alert and oriented x3 and is not in any distress. Urinalysis is unremarkable with no h ematuria or signs of infection. Abdomen pelvis CT scan without contrast shows no acute abnormalities including no distal ureteral stone, pelvic fluid collection or inflammation. Patient was treated for pain and also given muscle relaxants. Patient symptoms are likely musculoskeletal. Patient was discharged home on pain medications and muscle relaxants and advised follow-up with her primary care physician in 5 to 7 days for reevaluation or return to the ED immediately if symptoms get worse. - Differential Diagnosis Kidney stones; UTI; Muscle spasm Critical care attestation.: If time is entered above; I have spent that time in minutes in the direct care of this critically ill patient, excluding procedure time. ED Disposition Clinical Impression: Spasm of muscle of lower back Strain of lumbar paraspinous muscle Qualifiers: Encounter type: initial encounter Qualified Code(s): S39.012A - Strain of muscle, fascia and tendon of lower back, initial encounter Disposition: TO HOME OR SELFCARE Is pt being admited?: No Does the pt Need Aspirin: No Condition: Stable Instructions: Muscle Strain (ED), Muscle Spasm (ED) Additional Instructions: Abdomen pelvis CT scan without contrast is unremarkable with no acute abnormalities. Urinalysis unremarkable with no blood in urine or sign of infection. Therefore take medications as needed for pain and muscle spasm. Follow-up with your primary care physician in 5 to 7 days for reevaluation or return to the ED immediately if symptoms get worse. Prescriptions: predniSONE [Deltasone] 40 mg PO QDAY #12 tab methOCARBAMOL [Robaxin TAB] 750 mg PO Q8H PRN #24 tablet PRN Reason: Muscle Spasm traMADoL [Ultram] 50 mg PO Q6HR PRN #12 tablet PRN Reason: Pain Referrals: [facility] [Outside] - 3-5 Days Time of Disposition: 21:31 Print Language: VIETNAMESE
[2019-10-24 21:57] VITALS: BP 147/88
== END 2019-10-24 21:59 | disposition home or self-care (01) ==
LOC: ED 17:11
DX: S39.012A Strain of muscle, fascia and tendon of lower back, initial encounter (principal); M62.830 Muscle spasm of back; J44.9 Chronic obstructive pulmonary disease, unspecified; E11.9 Type 2 diabetes mellitus without complications; F25.0 Schizoaffective disorder, bipolar type; F17.200 Nicotine dependence, unspecified, uncomplicated; Z85.528 Personal history of other malignant neoplasm of kidney; Z98.890 Other specified postprocedural states; Z79.899 Other long term (current) drug therapy; Z88.6 Allergy status to analgesic agent; Z88.2 Allergy status to sulfonamides; Z88.8 Allergy status to other drugs, medicaments and biological substances; X50.0XXA Overexertion from strenuous movement or load, initial encounter; Y93.89 Activity, other specified; Y92.89 Other specified places as the place of occurrence of the external cause; Y99.8 Other external cause status
CPT/HCPCS: 74176; 81001; 81025; 99284

== ENCOUNTER 2020-11-03 19:43 | Emergency (ER) | payer MEDICARE ==
--- NOTE | 2020-11-03 20:33 | Event Note ---
ED Screening Note Date of service: 11/03/20 Time: 20:29 ED Screening Note: 39-year-old female presents to the emergency room stating that she hears voices. This initial assessment/diagnostic orders/clinical plan/treatment(s) is/are subject to change based on patients health status, clinical progression and re- assessment by fellow clinical providers in the ED. Further treatment and workup at subsequent clinical providers discretion. Patient/guardian urged not to elope from the ED as their condition may be serious if not clinically assessed and managed. Initial orders include:
[2020-11-03 21:05] LABS: Basophils # (Auto) 0.1 K/mm3 (0.0-0.1); Eosinophils # (Auto) 0.5 K/mm3 (0.0-0.4); Eosinophils % (Auto) 5.8 % (0.0-4.3); Hematocrit 47.5 % (30.3-42.9); Hemoglobin 16.2 gm/dl (10.1-14.3); Lymphocytes # (Auto) 2.3 K/mm3 (1.2-5.4); Lymphocytes % (Auto) 24.7 % (13.4-35.0); Mean Corpuscular HGB Conc 34 % (30-34); Mean Corpuscular Volume 84 fl (79-97); Monocytes # (Auto) 0.5 K/mm3 (0.0-0.8); Monocytes % (Auto) 5.3 % (0.0-7.3); Platelet Count 283 K/mm3 (140-440); Red Blood Count 5.64 M/mm3 (3.65-5.03); Red Cell Distribution Width 13.2 % (13.2-15.2)
[2020-11-03 21:26] LABS: Benzodiazepines Screen,Urine Negative; Cannabinoid Screen,Urine Negative; Methadone Screen,Urine Negative; Opiate Screen,Urine Negative
[2020-11-03 21:28] LABS: Alanine Aminotransferase 22 units/L (7-56); BUN/Creatinine Ratio 11; Blood Urea Nitrogen 11 mg/dL (7-17); Hemolysis Index 17
[2020-11-03 21:37] LABS: Amphetamine Screen,Urine Positive; Bacteria,Urine 1+ /HPF (Negative); Bilirubin,Urine NEG (Negative); Blood,Urine NEG (Negative); Cocaine Screen,Urine Positive; Color,Urine Yellow (Yellow); Mucus,Urine 1+ /HPF; Protein,Urine <15 mg/dL mg/dL (Negative); Urobilinogen,Urine < 2.0 mg/dL (<2.0)
[2020-11-04] MEDS ORDERED: SODIUM CHLORIDE 0.9% 1000 ML 1,000 ML IV ONE ×2 (00:33)
[2020-11-04] MEDS: metFORMIN 500 MG TAB PO SCH ×3 (01:39→18:22)
--- NOTE | 2020-11-04 02:04 | Emergency Department Report ---
ED Psych HPI - General Chief Complaint: Psych Stated Complaint: HEARING VOICES/MH EVAL/MED REFILL Time Seen by Provider: 11/04/20 00:27 Source: patient Mode of arrival: Ambulatory - History of Present Illness Initial Comments: Patient is a 39-year-old female with past medical history of schizophrenia who is presenting with suicidal ideations. Patient has no plan. States that she also has hearing voices which are screaming. States she has been having suicidal thoughts and the increased auditory hallucinations for approximately 2 weeks. Patient is a diabetic is been out of her medications. She cannot say exactly how long she has been out of her medications. Patient denies homicidal ideations cough cold congestion fevers or chills. - Related Data Previous Rx's Medication Instructions Recorded Last Taken Type cephALEXin [Keflex] 1,000 mg PO BID #28 capsule 04/23/19 Unknown Rx Nitrofurantoin Macrocrysta(Nf) 100 mg PO BID #14 capsule 04/25/19 Unknown Rx [Macrodantin CAP] methOCARBAMOL [Robaxin TAB] 750 mg PO Q8H PRN #24 tablet 10/24/19 Unknown Rx predniSONE [Deltasone] 40 mg PO QDAY #12 tab 10/24/19 Unknown Rx traMADoL [Ultram] 50 mg PO Q6HR PRN #12 tablet 10/24/19 Unknown Rx Dicyclomine [Bentyl] 20 mg PO Q6H PRN #30 tablet 03/24/20 Unknown Rx Famotidine [Pepcid] 20 mg PO Q12H #30 tablet 03/24/20 Unknown Rx Ondansetron [Zofran Odt] 4 mg PO Q6HR PRN #20 tab.rapdis 03/24/20 Unknown Rx Allergies Allergy/AdvReac Type Severity Reaction Status Date / Time aspirin Allergy Unknown Verified 10/09/19 16:11 divalproex sodium Allergy Unknown Verified 10/09/19 16:11 [From Depakote] hydromorphone [From Dilaudid] Allergy Unknown Verified 10/09/19 16:11 lithium Allergy Unknown Verified 10/09/19 16:11 Sulfa (Sulfonamide Allergy Unknown Verified 10/09/19 16:11 Antibiotics) ED Review of Systems ROS: Stated complaint: HEARING VOICES/MH EVAL/MED REFILL Other details as noted in HPI Comment: All other systems reviewed and negative ED Past Medical Hx - Past Medical History Hx Diabetes: Yes Hx Pulmonary Embolism: Yes Hx Psychiatric Treatment: Yes (bipolar, schizoaffective disorder) Hx COPD: Yes Additional medical history: kidney cancer - Surgical History Past Surgical History?: Yes Hx Cholecystectomy: Yes Hx Appendectomy: Yes Additional Surgical History: kidney surgery. . hysterectomy - Social History Smoking Status: Current Every Day Smoker Substance Use Type: Cocaine, Methamphetamines - Medications Home Medications: Home Medications Medication Instructions Recorded Confirmed Last Taken Type cephALEXin [Keflex] 1,000 mg PO BID #28 capsule 04/23/19 Unknown Rx Nitrofurantoin Macrocrysta(Nf) 100 mg PO BID #14 capsule 04/25/19 Unknown Rx [Macrodantin CAP] methOCARBAMOL [Robaxin TAB] 750 mg PO Q8H PRN #24 tablet 10/24/19 Unknown Rx predniSONE [Deltasone] 40 mg PO QDAY #12 tab 10/24/19 Unknown Rx traMADoL [Ultram] 50 mg PO Q6HR PRN #12 tablet 10/24/19 Unknown Rx Dicyclomine [Bentyl] 20 mg PO Q6H PRN #30 tablet 03/24/20 Unknown Rx Famotidine [Pepcid] 20 mg PO Q12H #30 tablet 03/24/20 Unknown Rx Ondansetron [Zofran Odt] 4 mg PO Q6HR PRN #20 tab.rapdis 03/24/20 Unknown Rx ED Physical Exam - General Limitations: No Limitations General appearance: alert, in no apparent distress - Head Head exam: Present: atraumatic, normocephalic - Eye Eye exam: Present: normal appearance, PERRL, EOMI - ENT ENT exam: Present: mucous membranes moist - Neck Neck exam: Present: normal inspection - Respiratory Respiratory exam: Present: normal lung sounds bilaterally. Absent: respiratory distress, wheezes, rales, rhonchi - Cardiovascular Cardiovascular Exam: Present: regular rate, normal rhythm, normal heart sounds. Absent: systolic murmur, diastolic murmur, rubs, gallop - GI/Abdominal GI/Abdominal exam: Present: soft, normal bowel sounds. Absent: distended, tenderness, guarding, rebound - Extremities Exam Extremities exam: Present: normal inspection - Back Exam Back exam: Present: normal inspection - Neurological Exam Neurological exam: Present: alert, oriented X3 - Psychiatric Psychiatric exam: Present: normal affect, normal mood - Skin Skin exam: Present: warm, dry, intact, normal color. Absent: rash ED Course Vital Signs 11/03/20 11/04/20 20:26 02:00 Temperature 99.5 F Pulse Rate 104 H 91 H Respiratory 20 18 Rate Blood Pressure 123/87 Blood Pressure 121/86 [Left] O2 Sat by Pulse 98 Oximetry - Reevaluation(s) Reevaluation #1: 11/04/20 02:11 Patient has a elevated glucose however she is not in DKA. She was given 2 L of normal saline and restarted on her Metformin. Patient is medically cleared at this time for psychiatric evaluation. ED Medical Decision Making - Lab Data Result diagrams: 11/03/20 20:46 11/03/20 20:46 Lab Results 11/03/20 11/03/20 11/03/20 Range/Units 20:46 20:46 20:46 WBC 9.3 (4.5-11.0) K/mm3 RBC 5.64 H (3.65-5.03) M/mm3 Hgb 16.2 H (10.1-14.3) gm/dl Hct 47.5 H (30.3-42.9) % MCV 84 (79-97) fl MCH 29 (28-32) pg MCHC 34 (30-34) % RDW 13.2 (13.2-15.2) % Plt Count 283 (140-440) K/mm3 Lymph % (Auto) 24.7 (13.4-35.0) % [place] % (Auto) 5.3 (0.0-7.3) % Eos % (Auto) 5.8 H (0.0-4.3) % Baso % (Auto) 1.0 (0.0-1.8) % Lymph # (Auto) 2.3 (1.2-5.4) K/mm3 [place] # (Auto) 0.5 (0.0-0.8) K/mm3 Eos # (Auto) 0.5 H (0.0-0.4) K/mm3 Baso # (Auto) 0.1 (0.0-0.1) K/mm3 Seg Neutrophils % 63.2 (40.0-70.0) % Seg Neutrophils # 5.9 (1.8-7.7) K/mm3 Sodium 138 (137-145) mmol/L Potassium 4.4 (3.6-5.0) mmol/L Chloride 102.6 (98-107) mmol/L Carbon Dioxide 23 (22-30) mmol/L Anion Gap 17 mmol/L BUN 11 (7-17) mg/dL Creatinine 1.0 (0.6-1.2) mg/dL Estimated GFR > 60 ml/min BUN/Creatinine Ratio 11 % Glucose 353 H (65-100) mg/dL Calcium 9.0 (8.4-10.2) mg/dL Total Bilirubin 0.30 (0.1-1.2) mg/dL AST 12 (5-40) units/L ALT 22 (7-56) units/L Alkaline Phosphatase 118 (35-129) units/L Total Protein 6.4 (6.3-8.2) g/dL Albumin 4.0 (3.9-5) g/dL Albumin/Globulin Ratio 1.7 % Urine Color (Yellow) Urine Turbidity (Clear) Urine pH (5.0-7.0) Ur Specific [place] (1.003-1.030) Urine Protein (Negative) mg/dL Urine Glucose (UA) (Negative) mg/dL Urine Ketones (Negative) mg/dL Urine Blood (Negative) Urine Nitrite (Negative) Urine Bilirubin (Negative) Urine Urobilinogen (<2.0) mg/dL Ur Leukocyte Esterase (Negative) Urine WBC (Auto) (0.0-6.0) /HPF Urine RBC (Auto) (0.0-6.0) /HPF U Epithel Cells (Auto) (0-13.0) /HPF Urine Bacteria (Auto) (Negative) /HPF Urine Mucus /HPF Salicylates < 0.3 L (2.8-20.0) mg/dL Urine Opiates Screen Urine Methadone Screen Acetaminophen (10.0-30.0) ug/mL Ur Barbiturates Screen Ur Phencyclidine Scrn Ur Amphetamines Screen U Benzodiazepines Scrn Urine Cocaine Screen U Marijuana (THC) Screen Drugs of Abuse Note Plasma/Serum Alcohol (0-0.07) % 11/03/20 11/03/20 11/03/20 Range/Units 20:46 20:46 Unknown WBC (4.5-11.0) K/mm3 RBC (3.65-5.03) M/mm3 Hgb (10.1-14.3) gm/dl Hct (30.3-42.9) % MCV (79-97) fl MCH (28-32) pg MCHC (30-34) % RDW (13.2-15.2) % Plt Count (140-440) K/mm3 Lymph % (Auto) (13.4-35.0) % [place] % (Auto) (0.0-7.3) % Eos % (Auto) (0.0-4.3) % Baso % (Auto) (0.0-1.8) % Lymph # (Auto) (1.2-5.4) K/mm3 [place] # (Auto) (0.0-0.8) K/mm3 Eos # (Auto) (0.0-0.4) K/mm3 Baso # (Auto) (0.0-0.1) K/mm3 Seg Neutrophils % (40.0-70.0) % Seg Neutrophils # (1.8-7.7) K/mm3 Sodium (137-145) mmol/L Potassium (3.6-5.0) mmol/L Chloride (98-107) mmol/L Carbon Dioxide (22-30) mmol/L Anion Gap mmol/L BUN (7-17) mg/dL Creatinine (0.6-1.2) mg/dL Estimated GFR ml/min BUN/Creatinine Ratio % Glucose (65-100) mg/dL Calcium (8.4-10.2) mg/dL Total Bilirubin (0.1-1.2) mg/dL AST (5-40) units/L ALT (7-56) units/L Alkaline Phosphatase (35-129) units/L Total Protein (6.3-8.2) g/dL Albumin (3.9-5) g/dL Albumin/Globulin Ratio % Urine Color Yellow (Yellow) Urine Turbidity Slightly-cloudy (Clear) Urine pH 5.0 (5.0-7.0) Ur Specific [place] 1.035 H (1.003-1.030) Urine Protein <15 mg/dl (Negative) mg/dL Urine Glucose (UA) >=500 (Negative) mg/dL Urine Ketones Neg (Negative) mg/dL Urine Blood Neg (Negative) Urine Nitrite Neg (Negative) Urine Bilirubin Neg (Negative) Urine Urobilinogen < 2.0 (<2.0) mg/dL Ur Leukocyte Esterase Neg (Negative) Urine WBC (Auto) 4.0 (0.0-6.0) /HPF Urine RBC (Auto) 3.0 (0.0-6.0) /HPF U Epithel Cells (Auto) 8.0 (0-13.0) /HPF Urine Bacteria (Auto) 1+ (Negative) /HPF Urine Mucus 1+ /HPF Salicylates (2.8-20.0) mg/dL Urine Opiates Screen Urine Methadone Screen Acetaminophen 5.0 L (10.0-30.0) ug/mL Ur Barbiturates Screen Ur Phencyclidine Scrn Ur Amphetamines Screen U Benzodiazepines Scrn Urine Cocaine Screen U Marijuana (THC) Screen Drugs of Abuse Note Plasma/Serum Alcohol < 0.01 (0-0.07) % // Range/Units Unknown WBC (4.5-11.0) K/mm3 RBC (3.65-5.03) M/mm3 Hgb (10.1-14.3) gm/dl Hct (30.3-42.9) % MCV (79-97) fl MCH (28-32) pg MCHC (30-34) % RDW (13.2-15.2) % Plt Count (140-440) K/mm3 Lymph % (Auto) (13.4-35.0) % [place] % (Auto) (0.0-7.3) % Eos % (Auto) (0.0-4.3) % Baso % (Auto) (0.0-1.8) % Lymph # (Auto) (1.2-5.4) K/mm3 [place] # (Auto) (0.0-0.8) K/mm3 Eos # (Auto) (0.0-0.4) K/mm3 Baso # (Auto) (0.0-0.1) K/mm3 Seg Neutrophils % (40.0-70.0) % Seg Neutrophils # (1.8-7.7) K/mm3 Sodium (137-145) mmol/L Potassium (3.6-5.0) mmol/L Chloride (98-107) mmol/L Carbon Dioxide (22-30) mmol/L Anion Gap mmol/L BUN (7-17) mg/dL Creatinine (0.6-1.2) mg/dL Estimated GFR ml/min BUN/Creatinine Ratio % Glucose (65-100) mg/dL Calcium (8.4-10.2) mg/dL Total Bilirubin (0.1-1.2) mg/dL AST (5-40) units/L ALT (7-56) units/L Alkaline Phosphatase (35-129) units/L Total Protein (6.3-8.2) g/dL Albumin (3.9-5) g/dL Albumin/Globulin Ratio % Urine Color (Yellow) Urine Turbidity (Clear) Urine pH (5.0-7.0) Ur Specific [place] (1.003-1.030) Urine Protein (Negative) mg/dL Urine Glucose (UA) (Negative) mg/dL Urine Ketones (Negative) mg/dL Urine Blood (Negative) Urine Nitrite (Negative) Urine Bilirubin (Negative) Urine Urobilinogen (<2.0) mg/dL Ur Leukocyte Esterase (Negative) Urine WBC (Auto) (0.0-6.0) /HPF Urine RBC (Auto) (0.0-6.0) /HPF U Epithel Cells (Auto) (0-13.0) /HPF Urine Bacteria (Auto) (Negative) /HPF Urine Mucus /HPF Salicylates (2.8-20.0) mg/dL Urine Opiates Screen Negative Urine Methadone Screen Negative Acetaminophen (10.0-30.0) ug/mL Ur Barbiturates Screen Negative Ur Phencyclidine Scrn Negative Ur Amphetamines Screen Positive U Benzodiazepines Scrn Negative Urine Cocaine Screen Positive U Marijuana (THC) Screen Negative Drugs of Abuse Note Disclamer Plasma/Serum Alcohol (0-0.07) % Critical care attestation.: If time is entered above; I have spent that time in minutes in the direct care of this critically ill patient, excluding procedure time. ED Disposition Clinical Impression: Acute psychosis, Suicidal ideation, Hyperglycemia Condition: Stable Referrals: PRIMARY CARE, [Primary Care Provider] - 3-5 Days
--- NOTE | 2020-11-04 10:51 | Consultation ---
History of Present Illness - Reason for Consult Consult date: 11/04/20 Reason for consult: SI, AH - History of Present Psychiatric Illness Per ED Note: Patient is a 39-year-old female with past medical history of schizophrenia who is presenting with suicidal ideations. Patient has no plan. States that she also has hearing voices which are screaming. States she has been having suicidal thoughts and the increased auditory hallucinations for approximately 2 weeks. Patient is a diabetic is been out of her medications. She cannot say exactly how long she has been out of her medications. Patient denies homicidal ideations cough cold congestion fevers or chills. Jami Alcantar is a 39y/o female patient who is here verbalizing suicidal thoughts and auditory hallucinations. The patient states "voices are screaming at me telling me to kill myself." She says "I don't think my meds are helping." She denies a plan. She verbalizes being depressed. The patient says she has a history of Bipolar Disorder and schizophrenia and takes Risperidone 2mg po BID, Topamax 100mg po BID, and Trazodone 100mg qhss. She verbalizes use of "crack cocaine and meth." PAST PSYCHIATRIC HISTORY Diagnoses: Schizophrenia, bipolar. Suicide attempts or Self-harm behavior: Denies Prior psychiatric hospitalizations: Yes Substance Abuse history: Meth and crack cocaine Previous psychiatric medications tried: none reported Outpatient treatment: Denies PAST MEDICAL HISTORY: None reported Family Psychiatric History: None reported or documented SOCIAL HISTORY Marital Status: Single Living Arrangements: boarding house Employment Status: disabled Access to guns/weapons: none reported Education: High school History of Abuse: none reported Legal History: yes REVIEW OF SYSTEMS Constitutional: Negative for weight loss ENT: Negative for stridor Respiratory: Negative for cough or hemoptysis All other systems reviewed and are negative MENTAL STATUS EXAMINATION General Appearance and Behavior: Age appropriate, good hygiene, wearing appropriate clothes, poor eye contact Cooperation: Participating/engaged, but Guarded Psychomotor Behavior: Psychomotor normal Mood: "depressed" Affect and affective range: congruent with stated mood Thought Process: illogical Thought Content: hallucinations, SI Speech: Normal rate, volume and rhythm Suicidal Ideation: Yes Homicidal Ideation: Denies Hallucinations: Auditory Delusions: None elicited Impulse Control: Limited Insight and Judgment: Limited insight and judgment Memory: Limited Attention: Impaired Orientation: Alert, oriented Assessment and Plan (1) Schizophrenia (2) Cocaine Dependence (3) Methamphetamine Use Disorder Treatment Plan 1013 Start Risperidone 2mg po BID Start Topamax 100mg po BID Start Trazodone 50mg po qhs Sitter: Defer to primary Medical: Per primary Disposition: Recommend acute psychiatric inpatient treatment Will follow. Thank you for this consult Case staffed with Dr. Blackwood. Medications and Allergies Allergies Allergy/AdvReac Type Severity Reaction Status Date / Time aspirin Allergy Unknown Verified 10/09/19 16:11 divalproex sodium Allergy Unknown Verified 10/09/19 16:11 [From Depakote] hydromorphone [From Dilaudid] Allergy Unknown Verified 10/09/19 16:11 lithium Allergy Unknown Verified 10/09/19 16:11 Sulfa (Sulfonamide Allergy Unknown Verified 10/09/19 16:11 Antibiotics) Home Medications Medication Instructions Recorded Confirmed Last Taken Type cephALEXin [Keflex] 1,000 mg PO BID #28 capsule 04/23/19 Unknown Rx Nitrofurantoin Macrocrysta(Nf) 100 mg PO BID #14 capsule 04/25/19 Unknown Rx [Macrodantin CAP] methOCARBAMOL [Robaxin TAB] 750 mg PO Q8H PRN #24 tablet 10/24/19 Unknown Rx predniSONE [Deltasone] 40 mg PO QDAY #12 tab 10/24/19 Unknown Rx traMADoL [Ultram] 50 mg PO Q6HR PRN #12 tablet 10/24/19 Unknown Rx Dicyclomine [Bentyl] 20 mg PO Q6H PRN #30 tablet 03/24/20 Unknown Rx Famotidine [Pepcid] 20 mg PO Q12H #30 tablet 03/24/20 Unknown Rx Ondansetron [Zofran Odt] 4 mg PO Q6HR PRN #20 tab.rapdis 03/24/20 Unknown Rx Active Meds: Active Medications Metformin HCl (Metformin 500 Mg Tab) 500 [facility] Last Admin: 11/04/20 09:53 Dose: 500 mg Documented by: Mental Status Exam - Vital signs Last Vital Signs Temp 98.6 F 11/04/20 09:00 Pulse 64 11/04/20 09:00 Resp 16 11/04/20 09:00 BP 116/68 11/04/20 09:00 Pulse Ox 97 11/04/20 09:00 Results Result Diagrams: 11/03/20 20:46 11/03/20 20:46 Abnormal lab results 11/03/20 11/03/20 11/03/20 Range/Units 20:46 20:46 20:46 RBC 5.64 H (3.65-5.03) M/mm3 Hgb 16.2 H (10.1-14.3) gm/dl Hct 47.5 H (30.3-42.9) % Eos % (Auto) 5.8 H (0.0-4.3) % Eos # (Auto) 0.5 H (0.0-0.4) K/mm3 Glucose 353 H (65-100) mg/dL Ur Specific [place] (1.003-1.030) Salicylates < 0.3 L (2.8-20.0) mg/dL Acetaminophen (10.0-30.0) ug/mL 11/03/20 11/03/20 Range/Units 20:46 Unknown RBC (3.65-5.03) M/mm3 Hgb (10.1-14.3) gm/dl Hct (30.3-42.9) % Eos % (Auto) (0.0-4.3) % Eos # (Auto) (0.0-0.4) K/mm3 Glucose (65-100) mg/dL Ur Specific [place] 1.035 H (1.003-1.030) Salicylates (2.8-20.0) mg/dL Acetaminophen 5.0 L (10.0-30.0) ug/mL All other labs normal.
[2020-11-04] MEDS ORDERED: risperiDONE 1 MG TAB PO SCH (11:00)
[2020-11-04] MEDS ORDERED: TOPIRAMATE TAB 100 MG TAB PO SCH (11:00)
[2020-11-04] MEDS ORDERED: LORazepam 1 MG TAB PO ONE (18:39)
[2020-11-04] MEDS ORDERED: ACETAMINOPHEN 500 MG TAB PO ONE (18:39)
[2020-11-04 20:06] VITALS: BP 116/78
[2020-11-04] MEDS ORDERED: traZODone 50 MG TAB PO SCH (22:00)
== END 2020-11-04 21:02 ==
LOC: ED 19:43
DX: F23 Brief psychotic disorder (principal); Z20.822 Contact with and (suspected) exposure to COVID-19; R45.851 Suicidal ideations; E11.65 Type 2 diabetes mellitus with hyperglycemia; F31.9 Bipolar disorder, unspecified; J44.9 Chronic obstructive pulmonary disease, unspecified; F17.200 Nicotine dependence, unspecified, uncomplicated; F14.10 Cocaine abuse, uncomplicated; F15.10 Other stimulant abuse, uncomplicated; Z90.49 Acquired absence of other specified parts of digestive tract; Z98.890 Other specified postprocedural states; Z79.899 Other long term (current) drug therapy; Z88.8 Allergy status to other drugs, medicaments and biological substances
CPT/HCPCS: 36415; 80053; 80307; 81001; 82962; 85025; 96360; 99285; J7030; U0003; 80320; G0480

== ENCOUNTER 2020-11-15 22:29 | Emergency (ER) | payer MEDICARE ==
[2020-11-15 23:50] LABS: Basophils # (Auto) 0.2 K/mm3 (0.0-0.1); Basophils % (Auto) 1.5 % (0.0-1.8); Eosinophils # (Auto) 0.4 K/mm3 (0.0-0.4); Eosinophils % (Auto) 3.5 % (0.0-4.3); Hematocrit 44.9 % (30.3-42.9); Hemoglobin 15.2 gm/dl (10.1-14.3); Lymphocytes # (Auto) 2.5 K/mm3 (1.2-5.4); Lymphocytes % (Auto) 21.4 % (13.4-35.0); Mean Corpuscular HGB Conc 34 % (30-34); Mean Corpuscular Volume 84 fl (79-97); Monocytes # (Auto) 0.7 K/mm3 (0.0-0.8); Platelet Count 317 K/mm3 (140-440); Red Blood Count 5.37 M/mm3 (3.65-5.03); Red Cell Distribution Width 13.1 % (13.2-15.2)
[2020-11-15 23:55] LABS: Amphetamine Screen,Urine PRESUMPTIVE NEGATIVE; Benzodiazepines Screen,Urine PRESUMPTIVE NEGATIVE; Cannabinoid Screen,Urine PRESUMPTIVE NEGATIVE; Cocaine Screen,Urine PRESUMPTIVE NEGATIVE; Methadone Screen,Urine PRESUMPTIVE NEGATIVE; Opiate Screen,Urine PRESUMPTIVE NEGATIVE
--- NOTE | 2020-11-16 00:07 | Emergency Department Report ---
ED Psych HPI - General Chief Complaint: Psych Stated Complaint: MENTAL HEALTH Time Seen by Provider: 11/16/20 00:02 Source: patient Mode of arrival: Ambulatory - History of Present Illness Initial Comments: Chief complaint: "Hearing voices, someone is trying to poison and rape me. I do not know who." HPI: This is a 39-year-old female with history of schizoaffective disorder, bipolar disorder pulmonary embolism, COPD, diabetes mellitus, kidney cancer status post nephrectomy, cocaine abuse, methamphetamine abuse who presents potential delusions, paranoia and auditory hallucinations. I have reviewed previous home medications. Patient has not previously taking medication for diabetes mellitus or COPD according to previous medication reconciliation. Patient denies suicidal homicidal ideation. Home medications include risperidone BuSpar trazodone Plavix according to german schmidt's report. She has not taken his medication in quite some time. MD Complaint: other (Delusions, paranoia, auditory hallucinations) -: days(s) (Several days) Associated Psychiatric Symptoms: auditory hallucinations, delusions History of same: Yes Quality: constant, getting worse Improves With: none Worsens With: none Context: recent drug abuse, not taking psychiatric Treatments Prior to Arrival: none - Related Data Previous Rx's Medication Instructions Recorded Last Taken Type cephALEXin [Keflex] 1,000 mg PO BID #28 capsule 04/23/19 Unknown Rx Nitrofurantoin Macrocrysta(Nf) 100 mg PO BID #14 capsule 04/25/19 Unknown Rx [Macrodantin CAP] methOCARBAMOL [Robaxin TAB] 750 mg PO Q8H PRN #24 tablet 10/24/19 Unknown Rx predniSONE [Deltasone] 40 mg PO QDAY #12 tab 10/24/19 Unknown Rx traMADoL [Ultram] 50 mg PO Q6HR PRN #12 tablet 10/24/19 Unknown Rx Dicyclomine [Bentyl] 20 mg PO Q6H PRN #30 tablet 03/24/20 Unknown Rx Famotidine [Pepcid] 20 mg PO Q12H #30 tablet 03/24/20 Unknown Rx Ondansetron [Zofran Odt] 4 mg PO Q6HR PRN #20 tab.rapdis 03/24/20 Unknown Rx Allergies Allergy/AdvReac Type Severity Reaction Status Date / Time aspirin Allergy Unknown Verified 10/09/19 16:11 divalproex sodium Allergy Unknown Verified 10/09/19 16:11 [From Depakote] hydromorphone [From Dilaudid] Allergy Unknown Verified 10/09/19 16:11 lithium Allergy Unknown Verified 10/09/19 16:11 Sulfa (Sulfonamide Allergy Unknown Verified 10/09/19 16:11 Antibiotics) ziprasidone [From Geodon] Allergy Anaphylaxis Verified 11/15/20 23:24 ED Review of Systems ROS: Stated complaint: MENTAL HEALTH Other details as noted in HPI Comment: All other systems reviewed and negative Constitutional: denies: fever, malaise Respiratory: denies: cough, shortness of breath Gastrointestinal: denies: abdominal pain, nausea, vomiting Neurological: denies: headache Psychiatric: auditory hallucinations. denies: homicidal thoughts, suicidal thoughts ED Past Medical Hx - Past Medical History Previous Medical History?: Yes Hx Diabetes: Yes Hx Pulmonary Embolism: Yes Hx Psychiatric Treatment: Yes (bipolar, schizoaffective disorder) Hx COPD: Yes Additional medical history: kidney cancer - Surgical History Past Surgical History?: Yes Hx Cholecystectomy: Yes Hx Appendectomy: Yes Additional Surgical History: kidney surgery. . hysterectomy - Social History Smoking Status: Current Every Day Smoker Substance Use Type: Cocaine, Methamphetamines - Medications Home Medications: Home Medications Medication Instructions Recorded Confirmed Last Taken Type cephALEXin [Keflex] 1,000 mg PO BID #28 capsule 04/23/19 Unknown Rx Nitrofurantoin Macrocrysta(Nf) 100 mg PO BID #14 capsule 04/25/19 Unknown Rx [Macrodantin CAP] methOCARBAMOL [Robaxin TAB] 750 mg PO Q8H PRN #24 tablet 10/24/19 Unknown Rx predniSONE [Deltasone] 40 mg PO QDAY #12 tab 10/24/19 Unknown Rx traMADoL [Ultram] 50 mg PO Q6HR PRN #12 tablet 10/24/19 Unknown Rx Dicyclomine [Bentyl] 20 mg PO Q6H PRN #30 tablet 03/24/20 Unknown Rx Famotidine [Pepcid] 20 mg PO Q12H #30 tablet 03/24/20 Unknown Rx Ondansetron [Zofran Odt] 4 mg PO Q6HR PRN #20 tab.rapdis 03/24/20 Unknown Rx ED Physical Exam - General Limitations: No Limitations General appearance: alert, anxious, other (anxious rocking paranoid pressured speech) - Head Head exam: Present: atraumatic, normocephalic - Eye Eye exam: Present: normal appearance - ENT ENT exam: Present: mucous membranes moist - Neck Neck exam: Present: normal inspection, full ROM - Respiratory Respiratory exam: Present: normal lung sounds bilaterally. Absent: respiratory distress, wheezes, rales, rhonchi, stridor - Cardiovascular Cardiovascular Exam: Present: regular rate, normal rhythm, normal heart sounds. Absent: systolic murmur, diastolic murmur, rubs, gallop - GI/Abdominal GI/Abdominal exam: Present: soft, normal bowel sounds. Absent: distended, tenderness, guarding, rebound - Extremities Exam Extremities exam: Present: normal inspection - Neurological Exam Neurological exam: Present: alert, oriented X3, normal gait - Psychiatric Psychiatric exam: Present: anxious, manic. Absent: homicidal ideation, suicidal ideation - Skin Skin exam: Present: warm, dry, intact, normal color. Absent: rash ED Medical Decision Making - Lab Data Result diagrams: 11/15/20 23:32 11/15/20 23:32 Laboratory Results - last 24 hr 11/15/20 11/15/20 11/15/20 23:29 23:32 23:32 WBC 11.7 H RBC 5.37 H Hgb 15.2 H Hct 44.9 H MCV 84 MCH 28 MCHC 34 RDW 13.1 L Plt Count 317 Lymph % (Auto) 21.4 [place] % (Auto) 6.0 Eos % (Auto) 3.5 Baso % (Auto) 1.5 Lymph # (Auto) 2.5 [place] # (Auto) 0.7 Eos # (Auto) 0.4 Baso # (Auto) 0.2 H Seg Neutrophils % 67.6 Seg Neutrophils # 7.9 H Sodium 133 L Potassium 4.4 Chloride 101.3 Carbon Dioxide 19 L Anion Gap 17 BUN 18 H Creatinine 0.9 Estimated GFR > 60 BUN/Creatinine Ratio 20 Glucose 361 H Calcium 9.0 HCG, Qual Urine Turbidity Urine pH Ur Specific [place] Urine Protein Urine Glucose (UA) Urine Ketones Urine Blood Urine Nitrite Ur Reducing Substances Urine Bilirubin Urine Ictotest Urine Urobilinogen Ur Leukocyte Esterase Urine WBC (Auto) Urine RBC (Auto) U Epithel Cells (Auto) Urine Mucus Salicylates Urine Opiates Screen Presumptive negative Urine Methadone Screen Presumptive negative Acetaminophen Ur Barbiturates Screen Presumptive negative Ur Phencyclidine Scrn Presumptive negative Ur Amphetamines Screen Presumptive negative U Benzodiazepines Scrn Presumptive negative Urine Cocaine Screen Presumptive negative U Marijuana (THC) Screen Presumptive negative Drugs of Abuse Note Disclamer 11/15/20 11/15/20 11/15/20 23:32 23:32 23:52 WBC RBC Hgb Hct MCV MCH MCHC RDW Plt Count Lymph % (Auto) [place] % (Auto) Eos % (Auto) Baso % (Auto) Lymph # (Auto) [place] # (Auto) Eos # (Auto) Baso # (Auto) Seg Neutrophils % Seg Neutrophils # Sodium Potassium Chloride Carbon Dioxide Anion Gap BUN Creatinine Estimated GFR BUN/Creatinine Ratio Glucose Calcium HCG, Qual Negative Urine Turbidity Urine pH Ur Specific [place] Urine Protein Urine Glucose (UA) Urine Ketones Urine Blood Urine Nitrite Ur Reducing Substances Urine Bilirubin Urine Ictotest Urine Urobilinogen Ur Leukocyte Esterase Urine WBC (Auto) Urine RBC (Auto) U Epithel Cells (Auto) Urine Mucus Salicylates < 0.3 L Urine Opiates Screen Urine Methadone Screen Acetaminophen 5.0 L Ur Barbiturates Screen Ur Phencyclidine Scrn Ur Amphetamines Screen U Benzodiazepines Scrn Urine Cocaine Screen U Marijuana (THC) Screen Drugs of Abuse Note 11/15/20 Unknown WBC RBC Hgb Hct MCV MCH MCHC RDW Plt Count Lymph % (Auto) [place] % (Auto) Eos % (Auto) Baso % (Auto) Lymph # (Auto) [place] # (Auto) Eos # (Auto) Baso # (Auto) Seg Neutrophils % Seg Neutrophils # Sodium Potassium Chloride Carbon Dioxide Anion Gap BUN Creatinine Estimated GFR BUN/Creatinine Ratio Glucose Calcium HCG, Qual Urine Turbidity Clear Urine pH 5.5 Ur Specific [place] 1.015 Urine Protein 30 mg/dl Urine Glucose (UA) Negative Urine Ketones Negative Urine Blood Negative Urine Nitrite Negative Ur Reducing Substances Negative Urine Bilirubin Negative Urine Ictotest Not Reportable Urine Urobilinogen Not Reportable Ur Leukocyte Esterase Negative Urine WBC (Auto) < 1.0 Urine RBC (Auto) 1.0 U Epithel Cells (Auto) < 1.0 Urine Mucus Few Salicylates Urine Opiates Screen Urine Methadone Screen Acetaminophen Ur Barbiturates Screen Ur Phencyclidine Scrn Ur Amphetamines Screen U Benzodiazepines Scrn Urine Cocaine Screen U Marijuana (THC) Screen Drugs of Abuse Note - Medical Decision Making Jami is a 39-year-old female with history of bipolar schizoaffective disorder who presents with paranoia, delusions, auditory hallucinations. She appears anxious with pressured speech. She has poor insight. 1013 morning completed. ED hold ordered. I have ordered home medications including BuSpar Risperdal and trazodone. Patient does have documented history of pulmonary embolism. I do not feel that Plavix is appropriate. I will defer ordering home medications for comorbidities until appropriate reconciliation was performed. I have ordered sliding scale for hyperglycemia. patient is medically clear for psychiatric care UDS is negative. Patient has history of polysubstance abuse. Critical care attestation.: If time is entered above; I have spent that time in minutes in the direct care of this critically ill patient, excluding procedure time. ED Disposition Clinical Impression: Acute psychosis, Bipolar disorder, Schizoaffective disorder Disposition: [id number] ANOTHER TYPE HLTHCARE Is pt being admited?: No Does the pt Need Aspirin: No Condition: Stable Referrals: PRIMARY CARE, [Primary Care Provider] - 3-5 Days
[2020-11-16 00:09] LABS: BUN/Creatinine Ratio 20; Blood Urea Nitrogen 18 mg/dL (7-17); Hemolysis Index 35
[2020-11-16 00:09] LABS: Mucus,Urine FEW /HPF; WBC,Urine < 1.0 /HPF (0.0-6.0)
[2020-11-16] MEDS ORDERED: LORazepam 2 MG/ML VIAL IM PRN (00:09)
[2020-11-16 00:11] LABS: Bilirubin,Urine Negative (Negative); Blood,Urine Negative (Negative); PH,Urine 5.5 (5.0-7.0)
[2020-11-16] MEDS ORDERED: traZODone 50 MG TAB PO ONE (00:17)
[2020-11-16] MEDS ORDERED: DEXTROSE 50% IN WATER (25GM) 50 ML SYRINGE IV PRN (00:22)
[2020-11-16] MEDS ORDERED: MAGNESIUM HYDROXIDE (MOM) ORAL LIQD UDC PO PRN (00:24)
[2020-11-16] MEDS ORDERED: ACETAMINOPHEN 325 MG TAB PO PRN (00:24)
[2020-11-16] MEDS ORDERED: ALUM-MAG HYDROXIDE-SIMETHICONE 200-200-20MG/5ML ORAL LIQD 30 ML PO PRN (00:24)
[2020-11-16] MEDS: INSULIN LISPRO 100 UNIT/ML SUB-Q SCH ×5 (08:10→18:28)
--- NOTE | 2020-11-16 08:45 | Consultation ---
History of Present Illness - Reason for Consult Consult date: 11/16/20 Reason for consult: MHE Requesting physician: ABHIJIT FRANKS - History of Present Psychiatric Illness Per ED Provider: This is a 39-year-old female with history of schizoaffective disorder, bipolar disorder pulmonary embolism, COPD, diabetes mellitus, kidney cancer status post nephrectomy, cocaine abuse, methamphetamine abuse who presents potential delusions, paranoia and auditory hallucinations. I have reviewed previous home medications. Patient has not previously taking medication for diabetes mellitus or COPD according to previous medication reconciliation. Patient denies suicidal homicidal ideation. Home medications include risperidone BuSpar trazodone Plavix according to patient's report. She has not taken his medication in quite some time. Psych HPI Patient is a 39-year-old single, unemployed currently on disability female who resides in a longterm with past psychiatric history of schizophrenia and bipolar and past medical history of COPD, PE, diabetes, kidney cancer status post nephrectomy who presented to the ED with no specific chief complaints She reports she had just been discharged from [facility], some of her medication was sent to the pharmacy, but she has not been able to pick this medication, because she thinks that her anchor misplaced her prescriptions. She reports that she does not really trust the system, mostly uncooperative with his examination saying that because she is white, but denies any self-destructive behavior or suicidal ideation at this moment. PAST PSYCHIATRIC HISTORY Diagnoses: Schizophrenia, bipolar. Suicide attempts or Self-harm behavior: Denies Prior psychiatric hospitalizations: Yes Substance Abuse history: Meth and crack cocaine Previous psychiatric medications tried: none reported Outpatient treatment: Denies PAST MEDICAL HISTORY: None reported Family Psychiatric History: None reported or documented SOCIAL HISTORY Marital Status: Single Living Arrangements: boarding house Employment Status: disabled Access to guns/weapons: none reported Education: High school History of Abuse: none reported Legal History: yes REVIEW OF SYSTEMS Constitutional: Negative for weight loss ENT: Negative for stridor Respiratory: Negative for cough or hemoptysis All other systems reviewed and are negative MENTAL STATUS EXAMINATION General Appearance and Behavior: Age appropriate, good hygiene, wearing appropriate clothes, poor eye contact Cooperation: Participating/engaged, but Guarded Psychomotor Behavior: Psychomotor normal Mood: "depressed" Affect and affective range: congruent with stated mood Thought Process: illogical Thought Content: hallucinations, SI Speech: Normal rate, volume and rhythm Suicidal Ideation: Yes Homicidal Ideation: Denies Hallucinations: Auditory Delusions: None elicited Impulse Control: Limited Insight and Judgment: Limited insight and judgment Memory: Limited Attention: Impaired Orientation: Alert, oriented Assessment and Plan (1) Schizophrenia (2) Cocaine Dependence (3) Methamphetamine Use Disorder Treatment Plan She was just recently discharged from [facility], patient reports she had difficulty picking up her medication at the pharmacy. Patient advised to give ankle a phone call by the medication that was sent to pharmacy so that they can clarify orders and also follow-up with her own psychiatrist. Due to patient recent discharge I do not see any need for further inpatient admission at this time MEDICATIONS: Risks, benefits and alternatives of medications discussed with the patient, questions answered and consent obtained from patient. PSYCHOTHERAPY: Supportive psychotherapy provided MEDICAL: Per primary team DELIRIUM PRECAUTIONS: Please re-orient patient frequently, keep lights on during the day, and minimize benzodiazepines and opiates as these medications could worsen patient's confusion. PRIVATE CHEF: DISPOSITION: Do Not Recommend acute inpatient psychiatric hospitalization at this time. Case discussed with Dr. Blackwood who agrees with current disposition LEGAL STATUS: 1013 rescinded FOLLOW-UP: Will sign off Thank you for the consult. Please contact with any questions and/or concerns. Medications and Allergies Allergies Allergy/AdvReac Type Severity Reaction Status Date / Time aspirin Allergy Unknown Verified 10/09/19 16:11 divalproex sodium Allergy Unknown Verified 10/09/19 16:11 [From Depakote] hydromorphone [From Dilaudid] Allergy Unknown Verified 10/09/19 16:11 lithium Allergy Unknown Verified 10/09/19 16:11 Sulfa (Sulfonamide Allergy Unknown Verified 10/09/19 16:11 Antibiotics) ziprasidone [From Geodon] Allergy Anaphylaxis Verified 11/15/20 23:24 Home Medications Medication Instructions Recorded Confirmed Last Taken Type cephALEXin [Keflex] 1,000 mg PO BID #28 capsule 04/23/19 Unknown Rx Nitrofurantoin Macrocrysta(Nf) 100 mg PO BID #14 capsule 04/25/19 Unknown Rx [Macrodantin CAP] methOCARBAMOL [Robaxin TAB] 750 mg PO Q8H PRN #24 tablet 10/24/19 Unknown Rx predniSONE [Deltasone] 40 mg PO QDAY #12 tab 10/24/19 Unknown Rx traMADoL [Ultram] 50 mg PO Q6HR PRN #12 tablet 10/24/19 Unknown Rx Dicyclomine [Bentyl] 20 mg PO Q6H PRN #30 tablet 03/24/20 Unknown Rx Famotidine [Pepcid] 20 mg PO Q12H #30 tablet 03/24/20 Unknown Rx Ondansetron [Zofran Odt] 4 mg PO Q6HR PRN #20 tab.rapdis 03/24/20 Unknown Rx Active Meds: Active Medications Acetaminophen (Acetaminophen 325 Mg Tab) 650 mg PO Q4HR PRN PRN Reason: Pain MILD(1-3)/Fever >100.5/ALVAREZ Al Hydrox/Mg Hydrox/Simethicone (Alum-Mag Hydroxide-Simethicone [phone]/5ml Oral Liqd 30 Ml) 30 ml PO Q4HR PRN PRN Reason: Indigestion Buspirone HCl (Buspirone 10 Mg Tab) 10 mg PO BID PAULA Dextrose (Dextrose 50% In Water (25gm) 50 Ml Syringe) 50 ml IV Q30MIN PRN; Protocol PRN Reason: Hypoglycemia Insulin Glargine (Insulin Glargine 100 Units/Ml) 10 units SUB-Q QHS PAULA Insulin Human Lispro (Insulin Lispro 100 Unit/Ml) 10 unit SUB-Q AC PAULA Last Admin: 11/16/20 08:10 Dose: 10 unit Documented by: Lorazepam (Lorazepam 2 Mg/Ml Vial) 2 mg IM Q4H PRN PRN Reason: Agitation Magnesium Hydroxide (Magnesium Hydroxide (Mom) Oral Liqd Udc) 30 ml PO Q12HR PRN PRN Reason: Constipation Risperidone (Risperidone 1 Mg Tab) 1 mg PO BID [facility] Mental Status Exam - Vital signs Last Vital Signs Temp 98.1 F 11/16/20 03:23 Pulse 78 11/16/20 03:23 Resp 16 11/16/20 03:23 BP 131/74 11/16/20 03:23 Pulse Ox 96 11/16/20 03:23 Results Result Diagrams: 11/15/20 23:32 11/15/20 23:32 Abnormal lab results 11/15/20 11/15/20 11/15/20 Range/Units 23:32 23:32 23:32 WBC 11.7 H (4.5-11.0) K/mm3 RBC 5.37 H (3.65-5.03) M/mm3 Hgb 15.2 H (10.1-14.3) gm/dl Hct 44.9 H (30.3-42.9) % RDW 13.1 L (13.2-15.2) % Baso # (Auto) 0.2 H (0.0-0.1) K/mm3 Seg Neutrophils # 7.9 H (1.8-7.7) K/mm3 Sodium 133 L (137-145) mmol/L Carbon Dioxide 19 L (22-30) mmol/L BUN 18 H (7-17) mg/dL Glucose 361 H (65-100) mg/dL POC Glucose (70-105) mg/dL Salicylates < 0.3 L (2.8-20.0) mg/dL Acetaminophen (10.0-30.0) ug/mL 11/15/20 11/16/20 Range/Units 23:32 07:33 WBC (4.5-11.0) K/mm3 RBC (3.65-5.03) M/mm3 Hgb (10.1-14.3) gm/dl Hct (30.3-42.9) % RDW (13.2-15.2) % Baso # (Auto) (0.0-0.1) K/mm3 Seg Neutrophils # (1.8-7.7) K/mm3 Sodium (137-145) mmol/L Carbon Dioxide (22-30) mmol/L BUN (7-17) mg/dL Glucose (65-100) mg/dL POC Glucose 335 H (70-105) mg/dL Salicylates (2.8-20.0) mg/dL Acetaminophen 5.0 L (10.0-30.0) ug/mL All other labs normal.
[2020-11-16] MEDS: busPIRone 10 MG TAB PO SCH ×2 (09:32→22:47)
[2020-11-16] MEDS: risperiDONE 1 MG TAB PO SCH ×2 (09:33→22:46)
[2020-11-16 13:27] LABS: BUN/Creatinine Ratio 14; Blood Urea Nitrogen 14 mg/dL (7-17); Calcium 9.1 mg/dL (8.4-10.2); Hemolysis Index 24
--- NOTE | 2020-11-16 13:36 | Emergency Department Report ---
[facility] Doc - Documentation Documentation: HPI A 39-year-old single female present to the ED to urge her medicines that the [facility] misplaced her medicine some time recently they gave her with the history of schizoaffective disorder, bipolar disorder, cocaine and methamphetamine abuse. She reports potential delusions, paranoia and auditory hallucinations. She shows up exasperates unsettled, incaution. She reports her potential fancies, suspicion and sound related auditory that telling her that the [facility] facilities misplaced her prescriptions purposely. She said, she is not trusting them any more. Denies suicidal or homicidal thought. She reports her Home medications include risperidone, Buspar, trazodone, and Plavix. However, She has not taken her medications in quite some time. PAST PSYCHIATRIC HISTORY: Diagnoses: Schizoaffective and bipolar disorder Suicide attempts or Self-harm behavior not reported Prior psychiatric hospitalizations yes Substance Abuse history: yes Previous psychiatric medications tried: risperidone, Buspar, trazodone, Outpatient treatment: PAST MEDICAL HISTORY: Family Psychiatric History. Not reported SOCIAL HISTORY Marital Status: single Living Arrangements: homeless, boarding house Employment Status: disabled Access to guns/weapons: denies Education: 5 grad History of Abuse: denies Legal History: yes REVIEW OF SYSTEMS ROS cannot be reliably obtained from the patient due to her confusion and somnolence. ROS: Constitutional: Negative for weight loss ENT: Negative for strider Respiratory: Negative for cough or hemoptysis All other systems reviewed and are negative MENTAL STATUS General Appearance and Behavior: age appropriate, good eye contact, cooperative, but impulsive in between conversation Cooperation: Cooperative but agitated easily Psychomotor Behavior within normal limits Mood: Agitated. impulsive Affect and affective range. Congruent with stated mood Thought Process : illogical Thought Content hallucinations Speech: Normal volume and Regular rate and rhythm Intellectual Functioning Average Suicidal Ideation: Denies SI Homicidal Ideation: Denies HI Impulse Control: limited Insight and Judgment: limited insight and judgment Memory: limited Attention: Impaired Orientation: alert and oriented
[2020-11-16 16:18] LABS: Basophils # (Auto) 0.1 K/mm3 (0.0-0.1); Basophils % (Auto) 0.6 % (0.0-1.8); Eosinophils # (Auto) 0.4 K/mm3 (0.0-0.4); Eosinophils % (Auto) 3.7 % (0.0-4.3); Hematocrit 44.2 % (30.3-42.9); Hemoglobin 14.9 gm/dl (10.1-14.3); Lymphocytes # (Auto) 1.9 K/mm3 (1.2-5.4); Lymphocytes % (Auto) 17.9 % (13.4-35.0); Mean Corpuscular HGB Conc 34 % (30-34); Mean Corpuscular Volume 84 fl (79-97); Monocytes # (Auto) 0.6 K/mm3 (0.0-0.8); Monocytes % (Auto) 6.1 % (0.0-7.3); Platelet Count 284 K/mm3 (140-440); Red Blood Count 5.28 M/mm3 (3.65-5.03); Red Cell Distribution Width 12.8 % (13.2-15.2)
[2020-11-16 16:58] LABS: Creatine Kinase MB < 1.0 ng/mL (0.0-4.0)
[2020-11-16] MEDS ORDERED: INSULIN GLARGINE 100 UNITS/ML SUB-Q SCH (22:00)
--- NOTE | 2020-11-17 01:07 | Event Note ---
Date: 11/17/20 The patient was evaluated in the emergency department for symptoms described in the history of present illness. He/she was evaluated in the context of the global COVID-19 pandemic, which necessitated consideration that the patient might be at risk for infection with the virus that causes COVID-19. Institutional protocols and algorithms that pertain to the evaluation of patients at risk for COVID-19 are in a state of rapid change based on information released by regulatory bodies including the CDC and federal and state organizations. These policies and algorithms were followed during the patient's care in the emergency department. Please note that these policies, procedures and recommendations changed on a rapid basis. Laboratory studies, documentation reviewed and appreciated. Psychiatry team has recommended discontinuation of patient's 1013. I have gone back to evaluate the patient. She presents as alert, oriented, sober and exhibits decision-making capacity at this time. Her thought process is linear, and she demonstrates the ability to think rationally and to care for herself. She denies physical pain, headache, neck pain, chest pain, abdominal pain, shortness of breath, urinary symptoms, and she has no meningeal signs on her examination. She was medically cleared on her initial evaluation, laboratory studies are reviewed and appreciated. Psychiatry team to refill patient's psychiatric medications. I have refilled patient's medical prescriptions. The patient is able to tell me where she lives, how she will get home, and what pharmacy she will go to. Patient does not require medical admission at this time. Patient suitable for discharge at this point time. She tells me that she is not homicidal or suicidal, and that she is not experiencing hallucinations.
[2020-11-17 05:06] VITALS: BP 115/70
== END 2020-11-17 05:00 | disposition home or self-care (01) ==
LOC: ED 22:29 → EEVIPCON 22:29 → ED 11-17 05:00
DX: F25.0 Schizoaffective disorder, bipolar type (principal); F23 Brief psychotic disorder; J44.9 Chronic obstructive pulmonary disease, unspecified; E11.9 Type 2 diabetes mellitus without complications; F17.200 Nicotine dependence, unspecified, uncomplicated; F15.90 Other stimulant use, unspecified, uncomplicated; F14.90 Cocaine use, unspecified, uncomplicated; Z88.8 Allergy status to other drugs, medicaments and biological substances; Z79.899 Other long term (current) drug therapy; Z20.822 Contact with and (suspected) exposure to COVID-19; Z90.49 Acquired absence of other specified parts of digestive tract; Z90.710 Acquired absence of both cervix and uterus
CPT/HCPCS: 36415; 80048; 80307; 81001; 82010; 82550; 82553; 82962; 84703; 85025; 96372; 99284; U0003; 80320; G0480; J1815

== ENCOUNTER 2021-04-01 20:43 | Emergency (ER) | payer MEDICARE ==
[2021-04-01 22:49] VITALS: BP 145/86
[2021-04-02 00:33] LABS: Basophils # (Auto) 0.1 K/mm3 (0.0-0.1); Basophils % (Auto) 1.1 % (0.0-1.8); Eosinophils # (Auto) 0.5 K/mm3 (0.0-0.4); Eosinophils % (Auto) 4.4 % (0.0-4.3); Hematocrit 44.5 % (30.3-42.9); Hemoglobin 14.9 gm/dl (10.1-14.3); Lymphocytes # (Auto) 3.1 K/mm3 (1.2-5.4); Lymphocytes % (Auto) 29.2 % (13.4-35.0); Mean Corpuscular HGB Conc 34 % (30-34); Mean Corpuscular Volume 85 fl (79-97); Monocytes # (Auto) 0.6 K/mm3 (0.0-0.8); Monocytes % (Auto) 5.8 % (0.0-7.3); Platelet Count 291 K/mm3 (140-440); Red Blood Count 5.26 M/mm3 (3.65-5.03); Red Cell Distribution Width 13.6 % (13.2-15.2)
[2021-04-02 00:58] LABS: Alanine Aminotransferase 13 units/L (7-56); Albumin 4.2 g/dL (3.9-5); BUN/Creatinine Ratio 16; Blood Urea Nitrogen 16 mg/dL (7-17); Calcium 9.1 mg/dL (8.4-10.2); Hemolysis Index 3
== END 2021-04-01 23:00 | disposition left against medical advice (07) ==
LOC: ED 20:43
DX: R52 Pain, unspecified (principal); Z53.21 Procedure and treatment not carried out due to patient leaving prior to being seen by health care provider
CPT/HCPCS: 36415; 80053; 85025

== ENCOUNTER 2021-10-05 01:11 | Emergency (ER) | payer MEDICARE ==
--- NOTE | 2021-10-05 01:48 | Emergency Department Report ---
ED General Adult HPI - General Chief complaint: Abdominal Pain Stated complaint: RT FLANK PAIN PUI?: No Time Seen by Provider: 10/05/21 01:47 Source: patient, EMS ( EMS documentation not available at time of chart dictati on ), RN notes reviewed, old records reviewed Mode of arrival: Stretcher Limitations: No Limitations - History of Present Illness Initial comments: The patient was evaluated in the emergency department for symptoms described in the history of present illness. He/she was evaluated in the context of the global COVID-19 pandemic, which necessitated consideration that the patient might be at risk for infection with the virus that causes COVID-19. Institutional protocols and algorithms that pertain to the evaluation of patients at risk for COVID-19 are in a state of rapid change based on information released by regulatory bodies including the CDC and federal and state organizations. These policies and algorithms were followed during the patient's care in the emergency department. Please note that these policies, procedures and recommendations changed on a rapid basis. The patient is a 40-year-old female, with a past medical history of body mass index of 41, history of "kidney cancer", with a history of left-sided nephrectomy, presenting to the ER today with complaint of right flank pain that radiates down to her suprapubic region, and bloody urine. This has been going on for a day or so. No fever, no vomiting, positive nausea, no chest pain, no diarrhea, no bloody stool, and no vaginal bleeding. Distant history of hysterectomy. Patient reports hematuria at the end of her urinary stream. Patient also reports "sediment" in her urine. 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 -: Gradual Location: abdomen Radiation: back, abdomen Severity scale (0 -10): 6 Consistency: intermittent Improves with: none Worsens with: none - Related Data Home Medications Medication Instructions Recorded Confirmed Last Taken busPIRone [Buspar] 10 mg PO BID 11/16/20 11/16/20 Unknown risperiDONE [RisperDAL] 2 mg PO BID 11/16/20 11/16/20 Unknown traZODone [Desyrel] 100 mg PO QHS 11/16/20 11/16/20 Unknown Previous Rx's Medication Instructions Recorded Last Taken Type Acetaminophen [Acetaminophen TAB] 650 mg PO Q4HR PRN #30 tablet 11/17/20 Unknown Rx Antacid [Alum-Mag Hydrox-Simeth 30 ml PO Q4HR PRN #30 oral.liqd 11/17/20 Unknown Rx [id number]] Dapagliflozin Propanediol [Farxiga] 5 mg PO DAILY #30 tab 11/17/20 Unknown Rx Insulin Glargine [Lantus VIAL] 10 units SUB-Q QHS #1 vial 11/17/20 Unknown Rx Lispro Insulin [HumaLOG] 10 unit SUB-Q AC #1 vial 11/17/20 Unknown Rx Magnesium Hydroxide [Milk of 30 ml PO Q12HR PRN oral.liqd 11/17/20 Unknown Rx Magnesia] Omeprazole 40 mg PO DAILY #30 tab 11/17/20 Unknown Rx Rosuvastatin Calcium [Crestor] 10 mg PO DAILY #30 tab 11/17/20 Unknown Rx Topiramate [Topamax] 100 mg PO BID #60 tab 11/17/20 Unknown Rx busPIRone [Buspar] 10 mg PO BID tablet 11/17/20 Unknown Rx metFORMIN [Glucophage] 500 mg PO BID #60 11/17/20 Unknown Rx risperiDONE [RisperDAL] 1 mg PO BID tablet 11/17/20 Unknown Rx Acetaminophen [Non-Aspirin Extra 500 mg PO Q6HR PRN #30 tablet 10/05/21 Unknown Rx Strength] Metoclopramide [Reglan] 10 mg PO QID PRN #30 tablet 10/05/21 Unknown Rx Allergies Allergy/AdvReac Type Severity Reaction Status Date / Time aspirin Allergy Unknown Verified 10/09/19 16:11 divalproex sodium Allergy Unknown Verified 10/09/19 16:11 [From Depakote] hydromorphone [From Dilaudid] Allergy Unknown Verified 10/09/19 16:11 lithium Allergy Unknown Verified 10/09/19 16:11 Sulfa (Sulfonamide Allergy Unknown Verified 10/09/19 16:11 Antibiotics) ziprasidone [From Geodon] Allergy Anaphylaxis Verified 11/15/20 23:24 ED Review of Systems ROS: Stated complaint: RT FLANK PAIN Other details as noted in HPI Constitutional: malaise. denies: fever Eyes: denies: eye discharge Respiratory: denies: cough Cardiovascular: denies: chest pain Gastrointestinal: abdominal pain, nausea. denies: vomiting, diarrhea, constipation, hematemesis, melena, hematochezia Genitourinary: hematuria. denies: dysuria Musculoskeletal: back pain Neurological: denies: weakness Psychiatric: anxiety Hematological/Lymphatic: denies: easy bleeding ED Past Medical Hx - Past Medical History Hx Diabetes: Yes Hx Pulmonary Embolism: Yes Hx Psychiatric Treatment: Yes (bipolar, schizoaffective disorder) Hx COPD: Yes Additional medical history: kidney cancer. PE, DVT - Surgical History Hx Cholecystectomy: Yes Hx Appendectomy: Yes Additional Surgical History: kidney surgery. . hysterectomy - Social History Smoking Status: Current Every Day Smoker Substance Use Type: None - Medications Home Medications: Home Medications Medication Instructions Recorded Confirmed Last Taken Type busPIRone [Buspar] 10 mg PO BID 11/16/20 11/16/20 Unknown History risperiDONE [RisperDAL] 2 mg PO BID 11/16/20 11/16/20 Unknown History traZODone [Desyrel] 100 mg PO QHS 11/16/20 11/16/20 Unknown History Acetaminophen [Acetaminophen TAB] 650 mg PO Q4HR PRN #30 tablet 11/17/20 Unknown Rx Antacid [Alum-Mag Hydrox-Simeth 30 ml PO Q4HR PRN #30 oral.liqd 11/17/20 Unknown Rx [id number]] Dapagliflozin Propanediol [Farxiga] 5 mg PO DAILY #30 tab 11/17/20 Unknown Rx Insulin Glargine [Lantus VIAL] 10 units SUB-Q QHS #1 vial 11/17/20 Unknown Rx Lispro Insulin [HumaLOG] 10 unit SUB-Q AC #1 vial 11/17/20 Unknown Rx Magnesium Hydroxide [Milk of 30 ml PO Q12HR PRN oral.liqd 11/17/20 Unknown Rx Magnesia] Omeprazole 40 mg PO DAILY #30 tab 11/17/20 Unknown Rx Rosuvastatin Calcium [Crestor] 10 mg PO DAILY #30 tab 11/17/20 Unknown Rx Topiramate [Topamax] 100 mg PO BID #60 tab 11/17/20 Unknown Rx busPIRone [Buspar] 10 mg PO BID tablet 11/17/20 Unknown Rx metFORMIN [Glucophage] 500 mg PO BID #60 11/17/20 Unknown Rx risperiDONE [RisperDAL] 1 mg PO BID tablet 11/17/20 Unknown Rx Acetaminophen [Non-Aspirin Extra 500 mg PO Q6HR PRN #30 tablet 10/05/21 Unknown Rx Strength] Metoclopramide [Reglan] 10 mg PO QID PRN #30 tablet 10/05/21 Unknown Rx ED Physical Exam - General Limitations: No Limitations General appearance: alert, anxious, obese - Head Head exam: Present: atraumatic, normocephalic - Eye Eye exam: Present: normal appearance, EOMI. Absent: nystagmus - ENT ENT exam: Present: normal exam, normal orophraynx, mucous membranes moist, normal external ear exam - Neck Neck exam: Present: normal inspection, full ROM. Absent: tenderness, meningismus - Respiratory Respiratory exam: Present: normal lung sounds bilaterally. Absent: respiratory distress, wheezes, rales, rhonchi, stridor, decreased breath sounds - Cardiovascular Cardiovascular Exam: Present: regular rate, normal rhythm, normal heart sounds. Absent: bradycardia, tachycardia, irregular rhythm, systolic murmur, diastolic murmur, rubs, gallop - GI/Abdominal GI/Abdominal exam: Present: soft, tenderness, other (There is right flank tenderness to deep palpation). Absent: distended, guarding, rebound, rigid, pulsatile mass - Extremities Exam Extremities exam: Present: normal inspection, full ROM, other (2+ pulses noted in the bilateral upper and lower extremities. There is no palpable cord. negative Homans sign. Muscular compartments are soft. The pelvis is stable.). Absent: pedal edema, calf tenderness - Back Exam Back exam: Present: normal inspection. Absent: tenderness, CVA tenderness (R), CVA tenderness (L), muscle spasm, paraspinal tenderness, vertebral tenderness - Neurological Exam Neurological exam: Present: alert, oriented X3, other (No facial droop. Tongue midline. Extraocular movements intact bilaterally. Facial sensation intact to light touch in V1, V2, V3 distribution bilaterally. 5 and a 5 strength in 4 extremities. Sensation intact to light touch in 4 extremities.). Absent: motor sensory deficit - Psychiatric Psychiatric exam: Present: anxious - Skin Skin exam: Present: warm, dry, intact, normal color. Absent: rash ED Course Vital Signs 10/05/21 10/05/21 01:19 03:45 Temperature 98.7 F Pulse Rate 90 Respiratory 18 Rate Blood Pressure 120/60 [Left] O2 Sat by Pulse 98 Oximetry O2 Sat by Pulse 99 Oximetry [ Digit-Finger] - Reevaluation(s) Reevaluation #1: 10/05/21 03:43 Differential diagnosis, including but not limited to: Renal colic, pneumonia, urinary tract infection, pyelonephritis, appendicitis Assessment and plan: \\40-year-old female, presenting today with complaint of right back, right flank and right suprapubic pain, associate with hematuria. The patient is afebrile, with reassuring vital signs. She is anxious and appears somewhat uncomfortable. There is no significant right lower quadrant tenderness, rebound, guarding, or Rovsing sign. Appendicitis is unlikely. There is a negative Elliott sign, Urinalysis is not suggestive of UTI, or renal colic, liver panel unremarkable. She is found to be mildly dehydrated, with evidence of hyperglycemia. We will check noncontrast CT scan of the abdomen pelvis, given history of nephrectomy. She will be provided insulin, fluids, pain medication, nausea medication. We will reassess after initial data points. 10/05/21 04:26 Patient resting comfortably in stretcher. She is in no acute distress. CT scan abdomen pelvis negative for acute findings. She may follow-up with an outpatient neurologist for her history of hematuria. She can follow-up with her primary care doctor for her chronic hyperglycemia. - Pulse Oximetry Interpretation Digit-Finger Initial Pulse Oximetry Readin O2 Sat by Pulse Oximetry: 99 Actions Taken: none ED Medical Decision Making - Lab Data Result diagrams: 10/05/21 02:57 10/05/21 02:57 Vital Signs 10/05/21 01:19 Temperature 98.7 F Pulse Rate 90 Respiratory 18 Rate Blood Pressure 120/60 [Left] O2 Sat by Pulse 98 Oximetry Lab Results 10/05/21 10/05/21 10/05/21 Range/Units 01:50 02:57 02:57 WBC 8.9 (4.5-11.0) K/mm3 RBC 4.92 (3.65-5.03) M/mm3 Hgb 14.0 (10.1-14.3) gm/dl Hct 40.7 (30.3-42.9) % MCV 83 (79-97) fl MCH 29 (28-32) pg MCHC 34 (30-34) % RDW 13.1 L (13.2-15.2) % Plt Count 257 (140-440) K/mm3 Sodium 134 L (137-145) mmol/L Potassium 4.0 (3.6-5.0) mmol/L Chloride 100.3 (98-107) mmol/L Carbon Dioxide 19 L (22-30) mmol/L Anion Gap 19 mmol/L BUN 20 H (7-17) mg/dL Creatinine 0.9 (0.6-1.2) mg/dL Estimated GFR > 60 ml/min BUN/Creatinine Ratio 22 % Glucose 396 H (65-100) mg/dL Calcium 9.0 (8.4-10.2) mg/dL Total Bilirubin 0.20 (0.1-1.2) mg/dL AST 11 (5-40) units/L ALT 23 (7-56) units/L Alkaline Phosphatase 112 (35-129) units/L Total Creatine Kinase 55 (30-135) units/L Total Protein 6.3 (6.3-8.2) g/dL Albumin 3.8 L (3.9-5) g/dL Albumin/Globulin Ratio 1.5 % Lipase 31 (13-60) units/L Urine Color Straw (Yellow) Urine Turbidity Clear (Clear) Urine pH 6.0 (5.0-7.0) Ur Specific [place] 1.028 (1.003-1.030) Urine Protein <15 mg/dl (Negative) mg/dL Urine Glucose (UA) >=500 (Negative) mg/dL Urine Ketones Neg (Negative) mg/dL Urine Blood Neg (Negative) Urine Nitrite Neg (Negative) Urine Bilirubin Neg (Negative) Urine Urobilinogen < 2.0 (<2.0) mg/dL Ur Leukocyte Esterase Neg (Negative) Urine WBC (Auto) 2.0 (0.0-6.0) /HPF Urine RBC (Auto) < 1.0 (0.0-6.0) /HPF U Epithel Cells (Auto) 1.0 (0-13.0) /HPF Urine HCG, Qual Negative (Negative) - Radiology Data Radiology results: pending, report reviewed, image reviewed CT abdomen pelvis wo con INDICATION / CLINICAL INFORMATION: Right flank and suprapubic pain. TECHNIQUE: All CT scans at this location are performed using CT dose reduction for ALARA by means of automated exposure control. COMPARISON: 01/29/2020 FINDINGS: No free fluid is seen in the abdomen. The gallbladder has been surgically removed. There is been prior left nephrectomy. The liver, spleen, right kidney, pancreas, adrenal glands and great vessels are normal. No enlarged mesenteric or retroperitoneal lymph nodes are seen. In the pelvis, a trace amount of fluid is present. No enlarged lymph nodes are identified. The bladder is normal. The appendix has been surgically removed. No significant skeletal abnormality is present. IMPRESSION: 1. Cholecystectomy 2. Left nephrectomy 3. No acute findings Signer Name: Jose Mcghee MD FACR Signed: 03/24/2020 9:44 PM Workstation Name: [id number] CT ABDOMEN AND PELVIS WITHOUT CONTRAST INDICATION / CLINICAL INFORMATION: Right flank pain and bloody urine. TECHNIQUE: Axial CT images were obtained through the abdomen and pelvis without IV contrast. All CT scans at this location are performed using CT dose reduction for ALARA by means of automated exposure control. COMPARISON: CT from 03/24/2020 FINDINGS: LOWER CHEST: No significant abnormality LIVER: No significant abnormality GALLBLADDER/BILIARY TREE: Cholecystectomy. PANCREAS: No significant abnormality SPLEEN: No significant abnormality ADRENALS: No significant abnormality KIDNEYS / URETER: Prior left nephrectomy. Right kidney and ureter are unremarkable. No urolithiasis or hydronephrosis. URINARY BLADDER: No significant abnormality REPRODUCTIVE ORGANS: Uterus is absent. No significant adnexal abnormality. STOMACH / BOWEL: Small bowel is normal in caliber. Moderate colonic stool burden. No evidence of localized inflammation of the colon. The appendix is not visualized, compatible with history of appendectomy. LYMPH NODES: No significant adenopathy. VASCULATURE: No significant abnormality. OTHER: No free air, free fluid, or focal fluid collection is identified. SKELETAL SYSTEM: No acute osseous findings. IMPRESSION: 1. No acute abnormality of the abdomen or pelvis. Right kidney and ureter demonstrate an unremarkable unenhanced appearance. No urolithiasis or hydronephrosis. 2. Prior left nephrectomy. 3. Other stable chronic and incidental findings as above. Signer Name: Avinash Polo MD Signed: 10/05/2021 3:15 AM Workstation Name: [id number] Critical care attestation.: If time is entered above; I have spent that time in minutes in the direct care of this critically ill patient, excluding procedure time. ED Disposition Clinical Impression: Right flank pain, Hyperglycemia, History of hematuria Disposition: HOME / SELF CARE / HOMELESS Is pt being admited?: No Does the pt Need Aspirin: No Condition: Good Instructions: Abdominal Pain (ED) Additional Instructions: Please continue current outpatient medications. Recommend that patient exercise as tolerated, and aggressively lose weight. Recommend that patient remain compliant with a diabetic diet. We recommend follow-up with your primary care doctor within the next month. We recommend follow-up with a urologist, for history of blood in urine, within the next 2 to 4 weeks, to exclude genitourinary cancer, tumor, malignancy. Please take the prescribed pain medication and nausea medication as needed and directed. Please continue current outpatient medications otherwise. Please return to the emergency room right away with new pain, worsened pain, migration of pain, projectile vomiting, change in mental status, confusion, inability tolerate liquid feeds, new, worsened or different symptoms not present on the initial emergency room evaluation Referrals: RISA LEONG MD [Primary Care Provider] - 3-5 Days [facility] [Provider Group] - 3-5 Days Forms: Work/School Release Form(ED)
[2021-10-05] MEDS ORDERED: ONDANSETRON 4 MG ODT TAB PO ONE (02:49)
[2021-10-05] MEDS ORDERED: HYDROmorphone 1 MG/1 ML INJ IM ONE (02:49)
[2021-10-05] MEDS ORDERED: MORPHINE 4 MG/1 ML INJ IM STA (02:50)
[2021-10-05 02:51] LABS: Bilirubin,Urine NEG (Negative); Blood,Urine NEG (Negative); Color,Urine Straw (Yellow); Protein,Urine <15 mg/dL mg/dL (Negative); RBC,Urine < 1.0 /HPF (0.0-6.0); Urobilinogen,Urine < 2.0 mg/dL (<2.0)
[2021-10-05 02:55] LABS: HCG Qualitative,Urine Negative (Negative)
[2021-10-05 03:14] LABS: Hematocrit 40.7 % (30.3-42.9); Mean Corpuscular HGB Conc 34 % (30-34); Mean Corpuscular Volume 83 fl (79-97); Platelet Count 257 K/mm3 (140-440); Red Blood Count 4.92 M/mm3 (3.65-5.03); Red Cell Distribution Width 13.1 % (13.2-15.2)
[2021-10-05 03:34] LABS: Alanine Aminotransferase 23 units/L (7-56); Albumin 3.8 g/dL (3.9-5); BUN/Creatinine Ratio 22; Blood Urea Nitrogen 20 mg/dL (7-17); Hemolysis Index 18
[2021-10-05] MEDS ORDERED: INSULIN REGULAR, HUMAN 100 UNITS/1 ML SUB-Q ONE (03:40)
[2021-10-05] MEDS ORDERED: INSULIN REGULAR, HUMAN 100 UNITS/1 ML IV ONE (03:43)
[2021-10-05] MEDS ORDERED: LACTATED RINGERS 1,000 ML IV ONE (03:43)
--- NOTE | 2021-10-05 04:20 | Cat Scan Report ---
CT ABDOMEN AND PELVIS WITHOUT CONTRAST INDICATION / CLINICAL INFORMATION: Right flank pain and bloody urine. TECHNIQUE: Axial CT images were obtained through the abdomen and pelvis without IV contrast. All CT scans at this location are performed using CT dose reduction for ALARA by means of automated exposure control. COMPARISON: CT from 03/24/2020 FINDINGS: LOWER CHEST: No significant abnormality LIVER: No significant abnormality GALLBLADDER/BILIARY TREE: Cholecystectomy. PANCREAS: No significant abnormality SPLEEN: No significant abnormality ADRENALS: No significant abnormality KIDNEYS / URETER: Prior left nephrectomy. Right kidney and ureter are unremarkable. No urolithiasis o r hydronephrosis. URINARY BLADDER: No significant abnormality REPRODUCTIVE ORGANS: Uterus is absent. No significant adnexal abnormality. STOMACH / BOWEL: Small bowel is normal in caliber. Moderate colonic stool burden. No evidence of loca lized inflammation of the colon. The appendix is not visualized, compatible with history of appendect noni. LYMPH NODES: No significant adenopathy. VASCULATURE: No significant abnormality. OTHER: No free air, free fluid, or focal fluid collection is identified. SKELETAL SYSTEM: No acute osseous findings. IMPRESSION: 1. No acute abnormality of the abdomen or pelvis. Right kidney and ureter demonstrate an unremarkable unenhanced appearance. No urolithiasis or hydronephrosis. 2. Prior left nephrectomy. 3. Other stable chronic and incidental findings as above. Signer Name: Avinash Polo MD Signed: 10/05/2021 4:15 AM Workstation Name: [id number]
[2021-10-05] MEDS ORDERED: ONDANSETRON 4 MG/2 ML INJ ONE (04:55)
[2021-10-05] MEDS ORDERED: MORPHINE 4 MG/1 ML INJ ONE (05:01)
[2021-10-05] MEDS ORDERED: ONDANSETRON 4 MG/2 ML INJ IV ONE (05:04)
[2021-10-05 07:09] VITALS: BP 121/58
== END 2021-10-05 07:30 | disposition home or self-care (01) ==
LOC: ED 01:11
DX: R10.31 Right lower quadrant pain (principal); E11.65 Type 2 diabetes mellitus with hyperglycemia; F17.200 Nicotine dependence, unspecified, uncomplicated; Z90.89 Acquired absence of other organs; Z88.2 Allergy status to sulfonamides; Z88.6 Allergy status to analgesic agent
CPT/HCPCS: 36415; 74176; 80053; 81001; 81025; 82550; 82962; 83690; 85027; 87086; 96361; 96372; 96374; 96375; 99284; J2270; J2405; J7120; Q9967; J1815

== ENCOUNTER 2021-11-28 13:51 | Emergency (ER) | payer MEDICARE ==
[2021-11-28 16:01] LABS: Bilirubin,Urine NEG (Negative); Blood,Urine NEG (Negative); Color,Urine Yellow (Yellow); Mucus,Urine FEW /HPF; Protein,Urine <15 mg/dL mg/dL (Negative); RBC,Urine < 1.0 /HPF (0.0-6.0); Urobilinogen,Urine < 2.0 mg/dL (<2.0); WBC,Urine < 1.0 /HPF (0.0-6.0)
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
[2021-11-29 01:26] LABS: Hematocrit 47.5 % (30.3-42.9); Hemoglobin 16.3 gm/dl (10.1-14.3); Mean Corpuscular HGB Conc 34 % (30-34); Mean Corpuscular Volume 82 fl (79-97); Platelet Count 269 K/mm3 (140-440); Red Cell Distribution Width 13.3 % (13.2-15.2)
[2021-11-29 01:49] LABS: Alanine Aminotransferase 28 units/L (7-56); Albumin 4.4 g/dL (3.9-5); BUN/Creatinine Ratio 17; Blood Urea Nitrogen 15 mg/dL (7-17); Calcium 9.3 mg/dL (8.4-10.2); Hemolysis Index 18
[2021-11-29] MEDS ORDERED: LORazepam 2 MG/ML VIAL IM PRN (02:20)
[2021-11-29] MEDS ORDERED: HALOPERIDOL LACTATE 5 MG/1 ML INJ IM PRN (02:20)
--- NOTE | 2021-11-29 02:31 | XRay Report ---
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 COMPARISON: Abdominal x-ray 02/24/2021 FINDINGS: TUBES / LINES: None. BOWEL GAS PATTERN: No significant abnormality. Stable postop changes right upper quadrant and left mi dabdomen. FREE AIR / EXTRALUMINAL GAS: None seen. ADDITIONAL FINDINGS: Chest demonstrates no acute findings. CHEST: Visualized chest shows no significant abnormality. IMPRESSION: 1. No specific abnormality of the bowel gas pattern. 2. Postoperative changes suggesting prior cholecystectomy and possible left nephrectomy. Correlation recommended. Signer Name: Davie Justin II, MD Signed: 11/29/2021 2:27 AM Workstation Name: [id number]
--- NOTE | 2021-11-29 11:02 | Electrocardiograph Report ---
[facility] Test Date: 2021-11-29 Test Time: 01:12:24 Pat Name: FIDENCIO ALEXANDER Department: Room: Gender: F [employer] [address]: JAMES : 1980 Requested By: MARCO GALLAGHER Order Number: [id number] Reading MD: Jef Lopez Measurements Intervals [place] Rate: 69 P: 58 MN: 208 QRS: 60 QRSD: 79 T: 27 QT: 397 QTc: 425 Interpretive Statements Sinus rhythm Borderline prolonged MN interval No previous ECG available for comparison Electronically Signed On 11-29-2021 11:02:00 EDT by Jef Lopez
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
[2021-11-29 13:58] VITALS: BP 148/54
== END 2021-11-29 13:58 ==
LOC: ED 13:51
DX: F20.1 Disorganized schizophrenia (principal); Z13.30 Encounter for screening examination for mental health and behavioral disorders, unspecified; Z20.822 Contact with and (suspected) exposure to COVID-19
CPT/HCPCS: 36415; 74019; 80053; 80164; 80178; 81001; 84703; 85027; 93005; 99284; U0003; 80320; 99285; G0480

== ENCOUNTER 2021-12-05 22:37 | Emergency (ER) | payer MEDICARE ==
[2021-12-06] MEDS ORDERED: IBUPROFEN 800 MG TAB PO ONE (05:01)
[2021-12-06 05:07] VITALS: BP 121/71
== END 2021-12-06 05:06 | disposition home or self-care (01) ==
LOC: ED 22:37
DX: N63.20 Unspecified lump in the left breast, unspecified quadrant (principal); Z53.21 Procedure and treatment not carried out due to patient leaving prior to being seen by health care provider
CPT/HCPCS: 99282

== ENCOUNTER 2022-01-27 23:02 | Emergency (ER) | payer MEDICARE ==
[2022-01-28] MEDS ORDERED: BENZONATATE 100 MG CAP PO ONE (10:40)
[2022-01-28] MEDS ORDERED: IBUPROFEN 800 MG TAB PO ONE (10:40)
--- NOTE | 2022-01-28 11:48 | Emergency Department Report ---
- General Chief Complaint: Upper Respiratory Infection Stated Complaint: VOMITING/WEAKNESS Time Seen by Provider: 01/28/22 10:30 Source: patient Mode of arrival: Stretcher Limitations: No Limitations - History of Present Illness Initial Comments: This is a 41-year-old female nontoxic, well nourished in appearance, no acute signs of distress presents to the ED with c/o of productive cough, chills, body aches, rhinorrhea, nasal congestion, loss of smell and taste x several days. Patient describes productive cough as yellow mucus production. Patient denies any sick contacts. Patient denies any recent travels, long car, recent hospital stays. Patient denies any calf pain or calf tenderness. Patient denies any chest pain, short of breath, fever, chills, nausea, vomiting, hemoptysis, numbness, tingling, headache or stiff neck. MD Complaint: cough, rhinorrhea, nasal congestion -: days(s) Severity: mild Severity scale (0 -10): 3 Quality: aching Consistency: constant Improves With: nothing Worsens With: nothing Associated Symptoms: chills, rhinorrhea, nasal congestion, cough. denies: fever, myalgias, diaphoresis, headache, sore throat, stiff neck, chest pain, shortness of breath, abdominal pain, nausea, vomiting, diarrhea, dysuria, rash, confusion, right sweats, weight loss, epistaxis, hoarseness, ear pain Treatments Prior to Arrival: none - Related Data Home Medications Medication Instructions Recorded Confirmed Last Taken busPIRone [Buspar] 10 mg PO BID 11/16/20 11/16/20 Unknown risperiDONE [RisperDAL] 2 mg PO BID 11/16/20 11/16/20 Unknown traZODone [Desyrel] 100 mg PO QHS 11/16/20 11/16/20 Unknown Previous Rx's Medication Instructions Recorded Last Taken Type Acetaminophen [Acetaminophen TAB] 650 mg PO Q4HR PRN #30 tablet 11/17/20 Unknown Rx Antacid [Alum-Mag Hydrox-Simeth 30 ml PO Q4HR PRN #30 oral.liqd 11/17/20 Unknown Rx [id number]] Dapagliflozin Propanediol [Farxiga] 5 mg PO DAILY #30 tab 11/17/20 Unknown Rx Insulin Glargine [Lantus VIAL] 10 units SUB-Q QHS #1 vial 11/17/20 Unknown Rx Lispro Insulin [HumaLOG] 10 unit SUB-Q AC #1 vial 11/17/20 Unknown Rx Magnesium Hydroxide [Milk of 30 ml PO Q12HR PRN oral.liqd 11/17/20 Unknown Rx Magnesia] Omeprazole 40 mg PO DAILY #30 tab 11/17/20 Unknown Rx Rosuvastatin Calcium [Crestor] 10 mg PO DAILY #30 tab 11/17/20 Unknown Rx Topiramate [Topamax] 100 mg PO BID #60 tab 11/17/20 Unknown Rx busPIRone [Buspar] 10 mg PO BID tablet 11/17/20 Unknown Rx metFORMIN [Glucophage] 500 mg PO BID #60 11/17/20 Unknown Rx risperiDONE [RisperDAL] 1 mg PO BID tablet 11/17/20 Unknown Rx Acetaminophen [Non-Aspirin Extra 500 mg PO Q6HR PRN #30 tablet 10/05/21 Unknown Rx Strength] Metoclopramide [Reglan] 10 mg PO QID PRN #30 tablet 10/05/21 Unknown Rx Fluconazole [Diflucan TAB] 200 mg PO QDAY #1 tablet 12/06/21 Unknown Rx cephALEXin [Keflex] 500 mg PO TID 7 Days #21 cap 12/06/21 Unknown Rx traMADoL [Ultram] 50 mg PO Q6HR PRN #12 tablet 12/06/21 Unknown Rx Acetaminophen [Acetaminophen 8 650 mg PO Q8H PRN #12 tab 01/28/22 Unknown Rx Hour] Benzonatate [Tessalon Perles] 100 mg PO Q12H PRN #12 cap 01/28/22 Unknown Rx Allergies Allergy/AdvReac Type Severity Reaction Status Date / Time aspirin Allergy Unknown Verified 11/28/21 14:02 divalproex sodium Allergy Unknown Verified 11/28/21 14:02 [From Depakote] hydromorphone [From Dilaudid] Allergy Unknown Verified 11/28/21 14:02 lithium Allergy Unknown Verified 11/28/21 14:02 Sulfa (Sulfonamide Allergy Unknown Verified 11/28/21 14:02 Antibiotics) ziprasidone [From Geodon] Allergy Anaphylaxis Verified 11/28/21 14:02 ED Review of Systems ROS: Stated complaint: VOMITING/WEAKNESS Other details as noted in HPI Comment: All other systems reviewed and negative Constitutional: denies: chills, fever Eyes: denies: eye pain, eye discharge, vision change ENT: congestion. denies: ear pain, throat pain Respiratory: cough. denies: orthopnea, shortness of breath, SOB with exertion, SOB at rest, stridor, wheezing Cardiovascular: denies: chest pain, palpitations Endocrine: no symptoms reported Gastrointestinal: denies: abdominal pain, nausea, diarrhea Genitourinary: denies: urgency, dysuria, discharge Musculoskeletal: denies: back pain, joint swelling, arthralgia Skin: denies: rash, lesions Neurological: denies: headache, weakness, paresthesias Psychiatric: denies: anxiety, depression Hematological/Lymphatic: denies: easy bleeding, easy bruising ED Past Medical Hx - Past Medical History Previous Medical History?: Yes Hx Diabetes: Yes Hx Pulmonary Embolism: Yes Hx Psychiatric Treatment: Yes (bipolar, schizoaffective disorder) Hx COPD: Yes Additional medical history: kidney cancer. PE, DVT - Surgical History Past Surgical History?: Yes Hx Cholecystectomy: Yes Hx Appendectomy: Yes Additional Surgical History: kidney surgery. . hysterectomy - Social History Smoking Status: Current Every Day Smoker Substance Use Type: None - Medications Home Medications: Home Medications Medication Instructions Recorded Confirmed Last Taken Type busPIRone [Buspar] 10 mg PO BID 11/16/20 11/16/20 Unknown History risperiDONE [RisperDAL] 2 mg PO BID 11/16/20 11/16/20 Unknown History traZODone [Desyrel] 100 mg PO QHS 11/16/20 11/16/20 Unknown History Acetaminophen [Acetaminophen TAB] 650 mg PO Q4HR PRN #30 tablet 11/17/20 Unknown Rx Antacid [Alum-Mag Hydrox-Simeth 30 ml PO Q4HR PRN #30 oral.liqd 11/17/20 Unknown Rx [id number]] Dapagliflozin Propanediol [Farxiga] 5 mg PO DAILY #30 tab 11/17/20 Unknown Rx Insulin Glargine [Lantus VIAL] 10 units SUB-Q QHS #1 vial 11/17/20 Unknown Rx Lispro Insulin [HumaLOG] 10 unit SUB-Q AC #1 vial 11/17/20 Unknown Rx Magnesium Hydroxide [Milk of 30 ml PO Q12HR PRN oral.liqd 11/17/20 Unknown Rx Magnesia] Omeprazole 40 mg PO DAILY #30 tab 11/17/20 Unknown Rx Rosuvastatin Calcium [Crestor] 10 mg PO DAILY #30 tab 11/17/20 Unknown Rx Topiramate [Topamax] 100 mg PO BID #60 tab 11/17/20 Unknown Rx busPIRone [Buspar] 10 mg PO BID tablet 11/17/20 Unknown Rx metFORMIN [Glucophage] 500 mg PO BID #60 11/17/20 Unknown Rx risperiDONE [RisperDAL] 1 mg PO BID tablet 11/17/20 Unknown Rx Acetaminophen [Non-Aspirin Extra 500 mg PO Q6HR PRN #30 tablet 10/05/21 Unknown Rx Strength] Metoclopramide [Reglan] 10 mg PO QID PRN #30 tablet 10/05/21 Unknown Rx Fluconazole [Diflucan TAB] 200 mg PO QDAY #1 tablet 12/06/21 Unknown Rx cephALEXin [Keflex] 500 mg PO TID 7 Days #21 cap 12/06/21 Unknown Rx traMADoL [Ultram] 50 mg PO Q6HR PRN #12 tablet 12/06/21 Unknown Rx Acetaminophen [Acetaminophen 8 650 mg PO Q8H PRN #12 tab 01/28/22 Unknown Rx Hour] Benzonatate [Tessalon Perles] 100 mg PO Q12H PRN #12 cap 01/28/22 Unknown Rx ED Physical Exam - General Limitations: No Limitations General appearance: alert, in no apparent distress - Head Head exam: Present: atraumatic, normocephalic - Eye Eye exam: Present: normal appearance - ENT ENT exam: Present: normal exam, normal orophraynx - Neck Neck exam: Present: normal inspection, full ROM. Absent: tenderness, meningismus, lymphadenopathy - Respiratory Respiratory exam: Present: normal lung sounds bilaterally. Absent: respiratory distress, wheezes, rales, rhonchi, stridor, chest wall tenderness, accessory muscle use, decreased breath sounds, prolonged expiratory - Cardiovascular Cardiovascular Exam: Present: regular rate, normal rhythm, normal heart sounds. Absent: bradycardia, tachycardia, irregular rhythm, systolic murmur, diastolic murmur, rubs, gallop - GI/Abdominal GI/Abdominal exam: Present: soft, normal bowel sounds. Absent: distended, tenderness, guarding, rebound, rigid, diminished bowel sounds - Extremities Exam Extremities exam: Present: full ROM - Back Exam Back exam: Present: normal inspection, full ROM. Absent: tenderness, CVA tenderness (R), CVA tenderness (L), muscle spasm, paraspinal tenderness, vertebral tenderness, rash noted - Neurological Exam Neurological exam: Present: alert, oriented X3, normal gait - Psychiatric Psychiatric exam: Present: normal affect, normal mood - Skin Skin exam: Present: warm, dry, intact, normal color. Absent: rash ED Course Vital Signs 01/27/22 01/28/22 01/28/22 23:29 10:38 10:39 Temperature 98 F Pulse Rate 90 72 Respiratory 18 20 20 Rate Blood Pressure 130/90 Blood Pressure 117/75 [Left] O2 Sat by Pulse 99 94 94 Oximetry - Reevaluation(s) Reevaluation #1: 01/28/22 11:47 Patient is speaking in full sentences with no signs of distress noted. ED Medical Decision Making - Lab Data Result diagrams: 01/28/22 12:17 01/28/22 12:17 Lab Results 01/28/22 01/28/22 01/28/22 Range/Units 12:17 12:17 12:17 WBC 8.4 (4.5-11.0) K/mm3 RBC 5.21 H (3.65-5.03) M/mm3 Hgb 14.6 H (10.1-14.3) gm/dl Hct 43.9 H (30.3-42.9) % MCV 84 (79-97) fl MCH 28 (28-32) pg MCHC 33 (30-34) % RDW 13.6 (13.2-15.2) % Plt Count 275 (140-440) K/mm3 Lymph % (Auto) 26.0 (13.4-35.0) % [place] % (Auto) 5.8 (0.0-7.3) % Eos % (Auto) 5.2 H (0.0-4.3) % Baso % (Auto) 1.0 (0.0-1.8) % Lymph # (Auto) 2.2 (1.2-5.4) K/mm3 [place] # (Auto) 0.5 (0.0-0.8) K/mm3 Eos # (Auto) 0.4 (0.0-0.4) K/mm3 Baso # (Auto) 0.1 (0.0-0.1) K/mm3 Seg Neutrophils % 62.0 (40.0-70.0) % Seg Neutrophils # 5.2 (1.8-7.7) K/mm3 Sodium 139 (137-145) mmol/L Potassium 4.3 (3.6-5.0) mmol/L Chloride 105.7 (98-107) mmol/L Carbon Dioxide 23 (22-30) mmol/L Anion Gap 15 mmol/L BUN 19 H (7-17) mg/dL Creatinine 0.9 (0.6-1.2) mg/dL Estimated GFR > 60 ml/min BUN/Creatinine Ratio 21 % Glucose 186 H (65-100) mg/dL Calcium 9.5 (8.4-10.2) mg/dL Total Bilirubin 0.30 (0.1-1.2) mg/dL AST 11 (5-40) units/L ALT 18 (7-56) units/L Alkaline Phosphatase 83 (35-129) units/L Total Protein 7.1 (6.3-8.2) g/dL Albumin 4.4 (3.9-5) g/dL Albumin/Globulin Ratio 1.6 % HCG, Qual Negative (Negative) Urine Color (Yellow) Urine Turbidity (Clear) Urine pH (5.0-7.0) Ur Specific [place] (1.003-1.030) Urine Protein (Negative) mg/dL Urine Glucose (UA) (Negative) mg/dL Urine Ketones (Negative) mg/dL Urine Blood (Negative) Urine Nitrite (Negative) Urine Bilirubin (Negative) Urine Urobilinogen (<2.0) mg/dL Ur Leukocyte Esterase (Negative) Urine WBC (Auto) (0.0-6.0) /HPF Urine RBC (Auto) (0.0-6.0) /HPF U Epithel Cells (Auto) (0-13.0) /HPF Urine Mucus /HPF 01/28/22 Range/Units Unknown WBC (4.5-11.0) K/mm3 RBC (3.65-5.03) M/mm3 Hgb (10.1-14.3) gm/dl Hct (30.3-42.9) % MCV (79-97) fl MCH (28-32) pg MCHC (30-34) % RDW (13.2-15.2) % Plt Count (140-440) K/mm3 Lymph % (Auto) (13.4-35.0) % [place] % (Auto) (0.0-7.3) % Eos % (Auto) (0.0-4.3) % Baso % (Auto) (0.0-1.8) % Lymph # (Auto) (1.2-5.4) K/mm3 [place] # (Auto) (0.0-0.8) K/mm3 Eos # (Auto) (0.0-0.4) K/mm3 Baso # (Auto) (0.0-0.1) K/mm3 Seg Neutrophils % (40.0-70.0) % Seg Neutrophils # (1.8-7.7) K/mm3 Sodium (137-145) mmol/L Potassium (3.6-5.0) mmol/L Chloride (98-107) mmol/L Carbon Dioxide (22-30) mmol/L Anion Gap mmol/L BUN (7-17) mg/dL Creatinine (0.6-1.2) mg/dL Estimated GFR ml/min BUN/Creatinine Ratio % Glucose (65-100) mg/dL Calcium (8.4-10.2) mg/dL Total Bilirubin (0.1-1.2) mg/dL AST (5-40) units/L ALT (7-56) units/L Alkaline Phosphatase (35-129) units/L Total Protein (6.3-8.2) g/dL Albumin (3.9-5) g/dL Albumin/Globulin Ratio % HCG, Qual (Negative) Urine Color Yellow (Yellow) Urine Turbidity Clear (Clear) Urine pH 5.0 (5.0-7.0) Ur Specific [place] 1.020 (1.003-1.030) Urine Protein <15 mg/dl (Negative) mg/dL Urine Glucose (UA) >=500 (Negative) mg/dL Urine Ketones Neg (Negative) mg/dL Urine Blood Neg (Negative) Urine Nitrite Neg (Negative) Urine Bilirubin Neg (Negative) Urine Urobilinogen < 2.0 (<2.0) mg/dL Ur Leukocyte Esterase Neg (Negative) Urine WBC (Auto) < 1.0 (0.0-6.0) /HPF Urine RBC (Auto) 2.0 (0.0-6.0) /HPF U Epithel Cells (Auto) < 1.0 (0-13.0) /HPF Urine Mucus Few /HPF - Radiology Data [facility] [address] [place] [address] XRay Report Signed Patient: FIDENCIO ALEXANDER MR#: [id number] : 1980 Acct:[id number] Age/Sex: 41 / F ADM Date: 01/27/22 Loc: ED Attending Dr: Ordering Physician: JUAN DICKENS NP Date of Service: 01/28/22 Procedure(s): XR chest routine 2V Accession Number(s): [id number] cc: JUAN DICKENS NP Fluoro Time In Minutes: CHEST 2 VIEWS INDICATION: cough. COMPARISON: 10/16/2019 FINDINGS: SUPPORT DEVICES: None. HEART: Within normal limits. LUNGS/PLEURA: No acute air space or interstitial disease. No pneumothorax. ADDITIONAL FINDINGS: None. IMPRESSION: 1. No acute findings. Signer Name: Efren Brown MD Signed: 01/28/2022 1:16 PM Workstation Name: [id number] Transcribed By: JW Dictated By: Efren Brown MD Electronically Authenticated By: Efren Brown MD Signed Date/Time: 01/28/221315 DD/ 15 TD/TT: - Medical Decision Making This is a 41-year-old female that presents with suspected covid. Patient is stable and was examined by me. Chest x-ray has been obtained and dictated by radiologist with normal exam. Patient is notified of x-ray results with no questions noted. Patient does meet clinical concerns of COVID-19 and patient was instructed and educated on signs and symptoms and to self quarantine and seek medical attention as soon as possible if symptoms worsen and continue. Patient was instructed to increase hydration, rest and take Tylenol for fever episodes. Patient received tesslone perrls in the ED. Vitals stable. Patient is nonfebrile and normal heart rate. Patient was instructed Follow-up with a prima care doctor in 3-5 days or if symptoms worsen and continue return to emergency room as soon as possible. At time time of discharge, the patient does not seem toxic or ill in appearance. No acute signs of distress noted. Patient agrees to discharge treatment plan of care. No further questions noted by the patient.nt. Critical care attestation.: If time is entered above; I have spent that time in minutes in the direct care of this critically ill patient, excluding procedure time. ED Disposition Clinical Impression: Suspected COVID-19 virus infection Disposition: HOME / SELF CARE / HOMELESS Is pt being admited?: No Does the pt Need Aspirin: No Condition: Stable Instructions: COVID-19 Frequently Asked Questions, COVID-19 Additional Instructions: Follow-up with a primary care doctor in 3-5 days or if symptoms worsen and continue return to emergency room as soon as possible. Your symptoms appear most consistent with a COVID-19. Despite your previous negative COVID-19 test, I do recommend repeat outpatient Covid 19 testing. In the meantime, isolate/quarantine yourself and stay away from anyone who is elderly, immunocompromised or chronically ill. Please see your nearest health department or primary care doctor that you are referred to for COVID testing. Increased rest, hydration, and take [id number] Tylenol as directed from instructions label for pain/fever episode. Prescriptions: Acetaminophen [Acetaminophen 8 Hour] 650 mg PO Q8H PRN #12 tab PRN Reason: pain/fever Benzonatate [Tessalon Perles] 100 mg PO Q12H PRN #12 cap PRN Reason: Cough Referrals: LUIS MIGUEL ALDANA FNP-BC [Primary Care Provider] - 3-5 Days PRIMARY CAREMD [Referring] - 3-5 Days RISA LEONG MD [Staff Physician] - 3-5 Days Time of Disposition: 13:25
[2022-01-28 12:37] LABS: Bilirubin,Urine NEG (Negative); Blood,Urine NEG (Negative); Color,Urine Yellow (Yellow); Mucus,Urine FEW /HPF; Protein,Urine <15 mg/dL mg/dL (Negative); Urobilinogen,Urine < 2.0 mg/dL (<2.0); WBC,Urine < 1.0 /HPF (0.0-6.0)
[2022-01-28 12:37] LABS: Basophils # (Auto) 0.1 K/mm3 (0.0-0.1); Eosinophils # (Auto) 0.4 K/mm3 (0.0-0.4); Eosinophils % (Auto) 5.2 % (0.0-4.3); Hematocrit 43.9 % (30.3-42.9); Hemoglobin 14.6 gm/dl (10.1-14.3); Lymphocytes # (Auto) 2.2 K/mm3 (1.2-5.4); Mean Corpuscular HGB Conc 33 % (30-34); Mean Corpuscular Volume 84 fl (79-97); Monocytes # (Auto) 0.5 K/mm3 (0.0-0.8); Monocytes % (Auto) 5.8 % (0.0-7.3); Platelet Count 275 K/mm3 (140-440); Red Blood Count 5.21 M/mm3 (3.65-5.03); Red Cell Distribution Width 13.6 % (13.2-15.2)
[2022-01-28 13:10] LABS: Alanine Aminotransferase 18 units/L (7-56); Albumin 4.4 g/dL (3.9-5); BUN/Creatinine Ratio 21; Blood Urea Nitrogen 19 mg/dL (7-17); Calcium 9.5 mg/dL (8.4-10.2); Hemolysis Index 8
--- NOTE | 2022-01-28 13:20 | XRay Report ---
CHEST 2 VIEWS INDICATION: cough. COMPARISON: 10/16/2019 FINDINGS: SUPPORT DEVICES: None. HEART: Within normal limits. LUNGS/PLEURA: No acute air space or interstitial disease. No pneumothorax. ADDITIONAL FINDINGS: None. IMPRESSION: 1. No acute findings. Signer Name: Efren Brown MD Signed: 01/28/2022 1:16 PM Workstation Name: [id number]
[2022-01-28 14:36] VITALS: BP 136/87
== END 2022-01-28 14:35 | disposition home or self-care (01) ==
LOC: ED 23:02
DX: R68.83 Chills (without fever) (principal); R43.8 Other disturbances of smell and taste; R05.9 Cough, unspecified; J34.89 Other specified disorders of nose and nasal sinuses; R09.81 Nasal congestion; Z20.822 Contact with and (suspected) exposure to COVID-19; I26.99 Other pulmonary embolism without acute cor pulmonale; I82.409 Acute embolism and thrombosis of unspecified deep veins of unspecified lower extremity; E11.9 Type 2 diabetes mellitus without complications; F25.0 Schizoaffective disorder, bipolar type; Z90.89 Acquired absence of other organs; Z90.710 Acquired absence of both cervix and uterus; Z98.890 Other specified postprocedural states; F17.290 Nicotine dependence, other tobacco product, uncomplicated; Z85.528 Personal history of other malignant neoplasm of kidney; Z88.2 Allergy status to sulfonamides; Z88.5 Allergy status to narcotic agent; Z88.6 Allergy status to analgesic agent; Z88.8 Allergy status to other drugs, medicaments and biological substances
CPT/HCPCS: 36415; 71046; 80053; 81001; 84703; 85025; 99284

== ENCOUNTER 2022-02-16 22:27 | Emergency (ER) | payer MEDICARE ==
[2022-02-16 22:49] VITALS: BP 133/77
[2022-02-17 00:17] LABS: Alanine Aminotransferase 17 units/L (7-56); BUN/Creatinine Ratio 18; Blood Urea Nitrogen 18 mg/dL (7-17); Calcium 9.4 mg/dL (8.4-10.2); Hemolysis Index 18
[2022-02-17 00:30] LABS: Basophils # (Auto) 0.1 K/mm3 (0.0-0.1); Basophils % (Auto) 1.3 % (0.0-1.8); Eosinophils # (Auto) 0.4 K/mm3 (0.0-0.4); Hematocrit 44.3 % (30.3-42.9); Hemoglobin 14.7 gm/dl (10.1-14.3); Lymphocytes # (Auto) 2.8 K/mm3 (1.2-5.4); Mean Corpuscular HGB Conc 33 % (30-34); Mean Corpuscular Volume 84 fl (79-97); Monocytes # (Auto) 0.5 K/mm3 (0.0-0.8); Monocytes % (Auto) 6.6 % (0.0-7.3); Platelet Count 294 K/mm3 (140-440); Red Blood Count 5.28 M/mm3 (3.65-5.03); Red Cell Distribution Width 13.3 % (13.2-15.2)
[2022-02-17 01:57] LABS: Bacteria,Urine 1+ /HPF (Negative); RBC,Urine < 1.0 /HPF (0.0-6.0)
[2022-02-17 04:35] LABS: WBC,Urine < 1.0 /HPF (0.0-6.0)
[2022-02-17 04:36] LABS: Bilirubin,Urine 1+ (Negative); Blood,Urine 1+ (Negative); Color,Urine Yellow (Yellow)
[2022-02-17 04:37] LABS: Ictotest,Urine Negative (Negative); Protein,Urine <15 mg/dL mg/dL (Negative); Urobilinogen,Urine 0.2 mg/dL (<2.0)
[2022-02-17] MEDS ORDERED: SODIUM CHLORIDE 0.9% 1000 ML 1,000 ML IV ONE (15:23)
[2022-02-17] MEDS ORDERED: ONDANSETRON 4 MG/2 ML INJ IV ONE (15:23)
[2022-02-17] MEDS ORDERED: KETOROLAC 30 MG/1 ML INJ IV ONE (15:27)
--- NOTE | 2022-02-17 15:33 | Emergency Department Report ---
ED Abdominal Pain HPI - General Chief Complaint: Abdominal Pain Stated Complaint: ABD PAIN Time Seen by Provider: 02/17/22 15:20 Source: patient Mode of arrival: Stretcher Limitations: No Limitations - History of Present Illness Initial Comments: Is a 41-year-old female who presents for abdominal pain generalized right upper quadrant 5/10 for the past 2 months. Patient seen on yesterday for same patient has multiple visits to ED for same complaint. Last CT scan of abdomen pelvis was September 2021 which was unremarkable. Patient is status postchole cystectomy, status post appendectomy, status post hysterectomy, there is been no fevers no chills. Nausea vomiting exacerbated by p.o. intake. Symptoms are relieved by nothing tried. Patient states normal bowel movements however. MD Complaint: abdominal pain - Related Data Home Medications Medication Instructions Recorded Confirmed Last Taken busPIRone [Buspar] 10 mg PO BID 11/16/20 11/16/20 Unknown risperiDONE [RisperDAL] 2 mg PO BID 11/16/20 11/16/20 Unknown traZODone [Desyrel] 100 mg PO QHS 11/16/20 11/16/20 Unknown Previous Rx's Medication Instructions Recorded Last Taken Type Acetaminophen [Acetaminophen TAB] 650 mg PO Q4HR PRN #30 tablet 11/17/20 Unknown Rx Antacid [Alum-Mag Hydrox-Simeth 30 ml PO Q4HR PRN #30 oral.liqd 11/17/20 Unknown Rx [id number]/[id number]] Dapagliflozin Propanediol [Farxiga] 5 mg PO DAILY #30 tab 11/17/20 Unknown Rx Insulin Glargine [Lantus VIAL] 10 units SUB-Q QHS #1 vial 11/17/20 Unknown Rx Lispro Insulin [HumaLOG] 10 unit SUB-Q AC #1 vial 11/17/20 Unknown Rx Magnesium Hydroxide [Milk of 30 ml PO Q12HR PRN oral.liqd 11/17/20 Unknown Rx Magnesia] Omeprazole 40 mg PO DAILY #30 tab 11/17/20 Unknown Rx Rosuvastatin Calcium [Crestor] 10 mg PO DAILY #30 tab 11/17/20 Unknown Rx Topiramate [Topamax] 100 mg PO BID #60 tab 11/17/20 Unknown Rx busPIRone [Buspar] 10 mg PO BID tablet 11/17/20 Unknown Rx metFORMIN [Glucophage] 500 mg PO BID #60 11/17/20 Unknown Rx risperiDONE [RisperDAL] 1 mg PO BID tablet 11/17/20 Unknown Rx Acetaminophen [Non-Aspirin Extra 500 mg PO Q6HR PRN #30 tablet 10/05/21 Unknown Rx Strength] Metoclopramide [Reglan] 10 mg PO QID PRN #30 tablet 10/05/21 Unknown Rx Fluconazole [Diflucan TAB] 200 mg PO QDAY #1 tablet 12/06/21 Unknown Rx cephALEXin [Keflex] 500 mg PO TID 7 Days #21 cap 12/06/21 Unknown Rx traMADoL [Ultram] 50 mg PO Q6HR PRN #12 tablet 12/06/21 Unknown Rx Acetaminophen [Acetaminophen 8 650 mg PO Q8H PRN #12 tab 01/28/22 Unknown Rx Hour] Benzonatate [Tessalon Perles] 100 mg PO Q12H PRN #12 cap 01/28/22 Unknown Rx bisacodyL [Dulcolax suppos] 10 mg MT QDAY PRN #7 supp.rect 02/17/22 Unknown Rx polyethylene glycoL 3350 [Miralax 17 gm PO BID PRN #104 packet 02/17/22 Unknown Rx 3350] Allergies Allergy/AdvReac Type Severity Reaction Status Date / Time aspirin Allergy Unknown Verified 11/28/21 14:02 divalproex sodium Allergy Unknown Verified 11/28/21 14:02 [From Depakote] hydromorphone [From Dilaudid] Allergy Unknown Verified 11/28/21 14:02 lithium Allergy Unknown Verified 11/28/21 14:02 Sulfa (Sulfonamide Allergy Unknown Verified 11/28/21 14:02 Antibiotics) ziprasidone [From Geodon] Allergy Anaphylaxis Verified 11/28/21 14:02 ED Review of Systems ROS: Stated complaint: ABD PAIN Other details as noted in HPI Constitutional: denies: chills, fever Eyes: denies: eye pain, eye discharge, vision change ENT: denies: ear pain, throat pain Respiratory: denies: cough, shortness of breath, wheezing Cardiovascular: denies: chest pain, palpitations Endocrine: no symptoms reported Gastrointestinal: abdominal pain, nausea, vomiting. denies: diarrhea, constipation, melena, hematochezia Genitourinary: as per HPI. denies: urgency, dysuria, frequency, hematuria, discharge Musculoskeletal: denies: back pain, joint swelling, arthralgia Skin: denies: rash, lesions Neurological: denies: headache, weakness, paresthesias Psychiatric: denies: anxiety, depression Hematological/Lymphatic: denies: easy bleeding, easy bruising ED Past Medical Hx - Past Medical History Previous Medical History?: Yes Hx Diabetes: Yes Hx Pulmonary Embolism: Yes Hx Psychiatric Treatment: Yes (bipolar, schizoaffective disorder) Hx COPD: Yes Additional medical history: kidney cancer. PE, DVT - Surgical History Past Surgical History?: Yes Hx Cholecystectomy: Yes Hx Appendectomy: Yes Additional Surgical History: kidney surgery. . hysterectomy - Social History Smoking Status: Current Every Day Smoker Substance Use Type: None - Medications Home Medications: Home Medications Medication Instructions Recorded Confirmed Last Taken Type busPIRone [Buspar] 10 mg PO BID 11/16/20 11/16/20 Unknown History risperiDONE [RisperDAL] 2 mg PO BID 11/16/20 11/16/20 Unknown History traZODone [Desyrel] 100 mg PO QHS 11/16/20 11/16/20 Unknown History Acetaminophen [Acetaminophen TAB] 650 mg PO Q4HR PRN #30 tablet 11/17/20 Unknown Rx Antacid [Alum-Mag Hydrox-Simeth 30 ml PO Q4HR PRN #30 oral.liqd 11/17/20 Unknown Rx [id number]/5Ml] Dapagliflozin Propanediol [Farxiga] 5 mg PO DAILY #30 tab 11/17/20 Unknown Rx Insulin Glargine [Lantus VIAL] 10 units SUB-Q QHS #1 vial 11/17/20 Unknown Rx Lispro Insulin [HumaLOG] 10 unit SUB-Q AC #1 vial 11/17/20 Unknown Rx Magnesium Hydroxide [Milk of 30 ml PO Q12HR PRN oral.liqd 11/17/20 Unknown Rx Magnesia] Omeprazole 40 mg PO DAILY #30 tab 11/17/20 Unknown Rx Rosuvastatin Calcium [Crestor] 10 mg PO DAILY #30 tab 11/17/20 Unknown Rx Topiramate [Topamax] 100 mg PO BID #60 tab 11/17/20 Unknown Rx busPIRone [Buspar] 10 mg PO BID tablet 11/17/20 Unknown Rx metFORMIN [Glucophage] 500 mg PO BID #60 11/17/20 Unknown Rx risperiDONE [RisperDAL] 1 mg PO BID tablet 11/17/20 Unknown Rx Acetaminophen [Non-Aspirin Extra 500 mg PO Q6HR PRN #30 tablet 10/05/21 Unknown Rx Strength] Metoclopramide [Reglan] 10 mg PO QID PRN #30 tablet 10/05/21 Unknown Rx Fluconazole [Diflucan TAB] 200 mg PO QDAY #1 tablet 12/06/21 Unknown Rx cephALEXin [Keflex] 500 mg PO TID 7 Days #21 cap 12/06/21 Unknown Rx traMADoL [Ultram] 50 mg PO Q6HR PRN #12 tablet 12/06/21 Unknown Rx Acetaminophen [Acetaminophen 8 650 mg PO Q8H PRN #12 tab 01/28/22 Unknown Rx Hour] Benzonatate [Tessalon Perles] 100 mg PO Q12H PRN #12 cap 01/28/22 Unknown Rx bisacodyL [Dulcolax suppos] 10 mg MT QDAY PRN #7 supp.rect 02/17/22 Unknown Rx polyethylene glycoL 3350 [Miralax 17 gm PO BID PRN #104 packet 02/17/22 Unknown Rx 3350] ED Physical Exam - General Limitations: No Limitations General appearance: alert, in no apparent distress - Head Head exam: Present: normocephalic, normal inspection - Eye Eye exam: Present: PERRL, EOMI Pupils: Present: normal accommodation - ENT ENT exam: Present: normal orophraynx, mucous membranes moist - Neck Neck exam: Present: normal inspection, full ROM. Absent: tenderness, lymphadenopathy - Respiratory Respiratory exam: Present: normal lung sounds bilaterally, chest wall tenderness. Absent: respiratory distress, wheezes, stridor - Cardiovascular Cardiovascular Exam: Present: regular rate, normal rhythm, normal heart sounds. Absent: systolic murmur, diastolic murmur, rubs, gallop - GI/Abdominal GI/Abdominal exam: Present: soft, tenderness, normal bowel sounds. Absent: distended (Right upper quadrant), guarding, rebound, rigid, bruit, hernia - Rectal Rectal exam: Present: deferred - Extremities Exam Extremities exam: Present: normal inspection, full ROM, normal capillary refill. Absent: tenderness, pedal edema - Back Exam Back exam: Present: normal inspection, full ROM. Absent: tenderness, CVA tenderness (R), CVA tenderness (L) - Neurological Exam Neurological exam: Present: alert, oriented X3, CN II-XII intact, normal gait - Psychiatric Psychiatric exam: Present: normal affect, normal mood - Skin Skin exam: Present: warm, dry, intact, normal color. Absent: rash ED Course Vital Signs 02/16/22 22:28 Temperature 98.3 F Pulse Rate 81 Respiratory 18 Rate Blood Pressure 133/77 O2 Sat by Pulse 98 Oximetry ED Medical Decision Making - Lab Data Result diagrams: 02/16/22 23:29 02/16/22 23:29 Labs 02/16/22 02/16/22 02/16/22 22:49 23:29 23:29 WBC 7.9 RBC 5.28 H Hgb 14.7 H Hct 44.3 H MCV 84 MCH 28 MCHC 33 RDW 13.3 Plt Count 294 Lymph % (Auto) 35.0 [place] % (Auto) 6.6 Eos % (Auto) 5.0 H Baso % (Auto) 1.3 Lymph # (Auto) 2.8 [place] # (Auto) 0.5 Eos # (Auto) 0.4 Baso # (Auto) 0.1 Seg Neutrophils % 52.1 Seg Neutrophils # 4.1 Sodium 138 Potassium 4.1 Chloride 106.5 Carbon Dioxide 19 L Anion Gap 17 BUN 18 H Creatinine 1.0 Estimated GFR > 60 BUN/Creatinine Ratio 18 Glucose 199 H Calcium 9.4 Total Bilirubin 0.20 AST 10 ALT 17 Alkaline Phosphatase 90 Total Protein 7.0 Albumin 4.0 Albumin/Globulin Ratio 1.3 Urine Color Yellow Urine Turbidity Clear Urine pH 6.0 Ur Specific [place] 1.015 Urine Protein <15 mg/dl Urine Glucose (UA) 3+ Urine Ketones Negative Urine Blood 1+ Urine Nitrite Negative Ur Reducing Substances Not Reportable Urine Bilirubin 1+ Urine Ictotest Negative Urine Urobilinogen 0.2 Ur Leukocyte Esterase Negative Urine WBC (Auto) < 1.0 Urine RBC (Auto) < 1.0 U Epithel Cells (Auto) 1.0 Urine Bacteria (Auto) 1+ - Radiology Data Radiology results: report reviewed, image reviewed ABDOMEN 1 VIEW 02/17/2022 3:41 PM INDICATION / CLINICAL INFORMATION: abd pain. COMPARISON: None available. FINDINGS: TUBES / LINES: None. BOWEL GAS PATTERN: Constipation FREE AIR / EXTRALUMINAL GAS: None. ADDITIONAL FINDINGS: No significant additional findings. IMPRESSION: 1. Constipation Signer Name: Philip Miller MD Signed: 02/17/2022 4:00 PM Workstation Name: [id number] Transcribed By: CHHAYA Dictated By: AZAR MILLER MD Electronically Authenticated By: AZAR MILLER MD Signed Date/Time: 02/17/221599 DD/ 99 TD/TT: - Medical Decision Making KUB demonstrates constipation normal gas pattern. Labs noted as above suggestive of mild dehydration. Patient now refuses IV fluids. States she wants narcotic pain medication I explained to patient that her condition does not warrant narcotic pain management medication hydration and laxative of choice for constipation will be disposition medications and diagnosis. Patient will follow up with primary care doctor in 1 to 2 days. Patient return to emergency department should symptoms worsen. Patient verbalizes agreement and understanding of discharge plan. DC'd in stable condition at this time.. Critical care attestation.: If time is entered above; I have spent that time in minutes in the direct care of this critically ill patient, excluding procedure time. ED Disposition Clinical Impression: Constipation Qualifiers: Constipation type: unspecified constipation type Qualified Code(s): K59.00 - Constipation, unspecified Disposition: 01 HOME / SELF CARE / HOMELESS Is pt being admited?: No Does the pt Need Aspirin: No Condition: Stable Instructions: Abdominal Pain (ED), Constipation, Adult Additional Instructions: Take medication as prescribed, follow-up with your doctor in 2 to 3 days. Ret urn to emergency department should symptoms worsen. Prescriptions: bisacodyL [Dulcolax suppos] 10 mg MT QDAY PRN #7 supp.rect PRN Reason: Constipation polyethylene glycoL 3350 [Miralax 3350] 17 gm PO BID PRN #104 packet PRN Reason: Constipation Referrals: [facility] [Provider Group] - 3-5 Days Forms: Work/School Release Form(ED) Time of Disposition: 16:19
--- NOTE | 2022-02-17 16:05 | XRay Report ---
ABDOMEN 1 VIEW 02/17/2022 3:41 PM INDICATION / CLINICAL INFORMATION: abd pain. COMPARISON: None available. FINDINGS: TUBES / LINES: None. BOWEL GAS PATTERN: Constipation FREE AIR / EXTRALUMINAL GAS: None. ADDITIONAL FINDINGS: No significant additional findings. IMPRESSION: 1. Constipation Signer Name: Philip Coleman MD Signed: 02/17/2022 4:00 PM Workstation Name: [id number]
== END 2022-02-17 16:20 | disposition home or self-care (01) ==
LOC: ED 22:27
DX: K59.00 Constipation, unspecified (principal); E11.9 Type 2 diabetes mellitus without complications; I26.99 Other pulmonary embolism without acute cor pulmonale; F31.9 Bipolar disorder, unspecified; J44.1 Chronic obstructive pulmonary disease with (acute) exacerbation; Z90.49 Acquired absence of other specified parts of digestive tract; F17.200 Nicotine dependence, unspecified, uncomplicated; Z88.1 Allergy status to other antibiotic agents; Z91.09 Other allergy status, other than to drugs and biological substances; Z79.899 Other long term (current) drug therapy
CPT/HCPCS: 36415; 74018; 80053; 81001; 85025; 99284; J1885; J2405; J7030